=== PATIENT | female | born 1940 | race Caucasian/White ===

== ENCOUNTER → 2016-05-04 | Outpatient (CLI) | payer OTHER ==
[~2016-05-04] MED LIST: CALCTAB5 PO
--- NOTE | 2016-05-04 16:42 | MAMMOGRAPHY REPORT ---
BILATERAL DIGITAL SCREENING MAMMOGRAM TOMOSYNTHESIS WITH CAD: 05/04/2016 CLINICAL HISTORY: Routine screening. Patient has no complaints. TECHNIQUE: Breast tomosynthesis in addition to standard 2D mammography was performed. Current study was also evaluated with a Computer Aided Detection (CAD) system. COMPARISON: Comparison is made to exams dated: 04/29/2015 mammogram, 04/17/2013 mammogram, 04/14/2012 mammogram, 03/23/2011 mammogram, and 03/20/2010 mammogram - [facility]. BREAST COMPOSITION: The tissue of both breasts is heterogeneously dense, which may obscure small ma sses. FINDINGS: The parenchymal pattern is similar to prior exams. There are benign calcifications bilate rally. No suspicious mass, architectural distortion or cluster of microcalcifications is seen. IMPRESSION: ACR BI-RADS CATEGORY 1: NEGATIVE There is no mammographic evidence of malignancy. A 1 year screening mammogram is recommended. The p atient will receive written notification of the results. Approximately 10% of breast cancers are not detected with mammography. A negative mammographic repor t should not delay biopsy if a clinically suggestive mass is present. Davina Hutchins M.D. ay/:05/04/2016 16:33:20 Waistband Setter: Eve Obrien, [facility] letter sent: Normal 1/2 BI-RADS Code: ACR BI-RADS Category 1: Negative
== END | disposition home or self-care (01) ==
LOC: C.MAMM 14:42
PROVIDERS: ATTEND Obstetrics & Gynecology
DX: Z12.31 Encounter for screening mammogram for malignant neoplasm of breast (principal)

== ENCOUNTER → 2016-07-27 | Outpatient (CLI) | payer OTHER | END | disposition home or self-care (01) | LOC: C.RDSM 13:19 | PROVIDERS: ATTEND Physical Medicine & Rehabilitation Sports Medicine | DX: M17.12 Unilateral primary osteoarthritis, left knee (principal) ==

== ENCOUNTER → 2017-03-11 | Outpatient (CLI) | payer OTHER | END | disposition home or self-care (01) | LOC: C.LABSPEC 16:47 | PROVIDERS: ATTEND Podiatrist Primary Podiatric Medicine | DX: B35.1 Tinea unguium (principal) ==

== ENCOUNTER → 2017-04-29 | Outpatient (CLI) | payer OTHER ==
--- NOTE | 2017-04-29 10:26 | DIAGNOSTIC IMAGING REPORT ---
CHEST 2 VIEWS ROUTINE CLINICAL HISTORY: R05 [id number] dyspnea COMPARISON STUDY: 01/10/2013 FINDINGS: The bones soft tissues and hemidiaphragms are normal. The cardiomediastinal silhouette is normal. The lungs are clear. The pulmonary vasculature is normal. IMPRESSION: Negative chest. The above report was generated using voice recognition software. It may contain grammatical, syntax or spelling errors. Electronically signed by: Fito Mendez M.D. 04/29/2017 10:25 AM Dictated Date/Time: 04/29/2017 10:25 AM
[2017-04-29 12:24] LABS: INFLUENZA B ANTIGEN Neg for Influ B (NEG)
== END | disposition home or self-care (01) ==
LOC: C.LAB1850 10:12
PROVIDERS: ATTEND Internal Medicine Pulmonary Disease
DX: R05 Cough (principal); R50.9 Fever, unspecified

== ENCOUNTER → 2017-05-11 | Outpatient (CLI) | payer OTHER ==
--- NOTE | 2017-05-12 14:01 | MAMMOGRAPHY REPORT ---
BILATERAL DIGITAL SCREENING MAMMOGRAM TOMOSYNTHESIS WITH CAD: 05/11/2017 CLINICAL HISTORY: Routine screening. Patient has no complaints. TECHNIQUE: Breast tomosynthesis in addition to standard 2D mammography was performed. Current study was also evaluated with a Computer Aided Detection (CAD) system. COMPARISON: Comparison is made to exams dated: 05/04/2016 mammogram, 04/29/2015 mammogram, 04/23/2014 m ammogram, 04/17/2013 mammogram, 04/14/2012 mammogram, and 03/23/2011 mammogram - [facility]. BREAST COMPOSITION: The tissue of both breasts is heterogeneously dense, which may obscure small mas ses. FINDINGS: The parenchymal pattern is unchanged. No developing mass, architectural distortion or clus ter of suspicious microcalcifications is seen in either breast. IMPRESSION: ACR BI-RADS CATEGORY 2: BENIGN There is no mammographic evidence of malignancy. A 1 year screening mammogram is recommended. The pa tient will receive written notification of the results. Approximately 10% of breast cancers are not detected with mammography. A negative mammographic report should not delay biopsy if a clinically suggestive mass is present. Davina Hutchins M.D. ay/:05/11/2017 16:38:05 Wrapping Machine Operator: Ann Marie SMALLS(Olivier)(Leanne)(BD), [facility] letter sent: Normal 1/2 BI-RADS Code: ACR BI-RADS Category 2: Benign
== END | disposition home or self-care (01) ==
LOC: C.MAMM 14:20
PROVIDERS: ATTEND Obstetrics & Gynecology
DX: Z12.31 Encounter for screening mammogram for malignant neoplasm of breast (principal)

== ENCOUNTER → 2017-07-15 | Outpatient (CLI) | payer OTHER | END | disposition home or self-care (01) | LOC: C.PAPS 14:30 | PROVIDERS: ATTEND Obstetrics & Gynecology | DX: Z12.4 Encounter for screening for malignant neoplasm of cervix (principal) ==

== ENCOUNTER 2022-05-27 05:17 | Observation (INO) ==
--- NOTE | 2022-04-30 15:58 | PAT Medication Instructions ---
Medication Instructions Date of Service April 30, 2022 Home Medications Medication Instructions Recorded tcoiptcrne-odlxzgwprihyr-rnmhyunl 1 cap PO TID PRN pain #30 caps 09/11/20 50 mg-300 mg-40 mg capsule (Fioricet) grepltehxz-hqhxmwzsadcql-xlzunrgw 50 mg-300 mg-40 mg capsule (Fioricet) 1 cap PO TID PRN Relief Factor 1 tab PO DIRECTED PRN acetaminophen 325 mg tablet (Tylenol) 325 mg PO QID PRN ASK your surgeon for instructions ldkwshocwb-kthtcptvzwgsk-eveierud 50 mg-300 mg-40 mg capsule (Fioricet) 1 cap PO TID PRN STOP taking 2 weeks before surgery (or as soon as possible if surgery is within 2 weeks) Relief Factor 1 tab PO DIRECTED PRN Take morning of surgery With a small sip of water, OTHERWISE NOTHING TO EAT OR DRINK AFTER MIDNIGHT: acetaminophen 325 mg tablet (Tylenol) 325 mg PO QID PRN(if needed) Take evening before surgery acetaminophen 325 mg tablet (Tylenol) 325 mg PO QID PRN(if needed) Other Notes If you have any questions please call us at [phone] or [phone] or [phone] or [phone]
--- NOTE | 2022-05-04 10:32 | Anesthesiology Consultation ---
Date of Service May 04, 2022 Assessment & Plan (1) Encounter for pre-operative examination: - Outpatient joint assessment: Patient is currently scheduled for inpatient pathway. If re-evaluated pending system levels during current pandemic/surgeon requests outpatient pathway, patient is not acceptable candidate for outpatient joint program from anesthesia standpoint. Chart Review Chart Review: Acceptable Risk for Surgery and Patient seen in Pre Admission Testing Teaching & Discussion Pre-Anesthesia Teaching/Discussion Notes: Instructed NPO after midnight before surgery, except medications with 15 cc of water. Medication instructions provided according to the PAT guidelines. History Surgery Operation Date: 05/27/22 07:00 Proposed Procedures p Right Total Knee Arthroplasty - Jac Victoria MD Height/Weight Height: 5 ft 6.5 in Weight: 60.7 kg Allergies Allergy/AdvReac Type Severity Reaction Status Date / Time No Known Allergies Allergy Unknown Verified 04/30/22 11:15 Medications Home Medications Medication Instructions Recorded Confirmed Last Taken ilosqtxfis-nwgslkrblnkrl-tyydtygs 1 cap PO TID PRN pain #30 caps 09/11/20 04/30/22 Unknown 50 mg-300 mg-40 mg capsule (Fioricet) Relief Factor 1 tab PO DIRECTED PRN Pain 04/30/22 04/30/22 Unknown acetaminophen 325 mg tablet 325 mg PO QID PRN Pain 04/30/22 04/30/22 Unknown (Tylenol) Past Medical History Medical History Hodgkin's disease no recent flare up Rheumatoid arthritis Patient denies h/o stroke, seizures, heart attack, heart failure, DM, HTN, blood clots or blood transfusions. Exercise / Class Metabolic Activity II 4-5 Yardwork/Stairs/Walk up hill (denies chest discomfort or shortness of breath with 1 FOS) Past Family History Family History Other Family history non-contributory Denies family history of Ovarian cancer Breast cancer Colorectal cancer Past Surgical History Surgical History (Updated 05/04/22 @ 10:57 by Ana Fink PA-C) History of cataract surgery History of removal of Port-a-Cath Hx of basal cell carcinoma excision back Past Anesthesia History No Hx of Anesthesia Complications and No Family Hx of Anesthesia Complications History of PONV No Hx of PONV and No Hx of Motion Sickness Social History Smoking Status: Never smoker Do You Dip or Chew Tobacco: No Hx Alcohol Use: Yes Alcohol type: wine alcohol intake frequency: 0-2 drinks per day Hx Substance Use: No substance use type: does not use Review of Systems Patient denies chest pain, shortness of breath, dyspnea on exertion, snoring, witnessed apneas, reflux, fever, chills, cough, wheezing, or palpitations. Physical Exam Vital Signs Vitals BP 134/87 P 86 TEMP 98.3 SP02 98% on RA RESP 18 Physical Full cervical extension range of motion without pain TMD 3.5 finger breadths Mallampati Score 3 Dentition: several crowns and permanent bridge right upper back; denies chipped or loose teeth, caps or implants Lungs: normal respiratory effort. Clear throughout to auscultation, no adventitious breath sounds Cardiac: regular rate and rhythm, no murmurs noted Carotid arteries: negative bruit bilat Lab Results Anesthesia Preop Results Results Anesthesia Widget: WBC 4.55 K/ul (4.8-10.8) L 05/04/22 Hgb 13.4 g/dl (12.0-16.0) 05/04/22 Hct 39.3 % (37.0-47.0) 05/04/22 Plt 196 K/uL (130-400) 05/04/22 Na 138 mmol/L (136-145) 05/04/22 K 3.9 mmol/L (3.5-5.1) 05/04/22 Cl 104 mmol/L (98-107) 05/04/22 CO2 27 mmol/L (21-32) 05/04/22 BUN 18 mg/dl (6-23) 05/04/22 Creat 0.52 mg/dl (0.6-1.2) L 05/04/22 Glucose Level 83 mg/dl (70-99(Fasting)) 05/04/22 PT 10.3 Seconds (9.0-12.0) 05/04/22 PTT 27.0 Seconds (21.0-31.0) 05/04/22 INR 1.0 (0.9-1.1) 05/04/22 Urine Color Yellow 05/04/22 Urine Appearance Clear (Clear) 05/04/22 Urine pH 6.5 (4.5-7.5) 05/04/22 Urine Specific [place] 1.014 (1.000-1.030) 05/04/22 Urine Protein Negative (Negative) 05/04/22 Urine Glucose (UA) Negative (Negative) 05/04/22 Urine Ketones Negative (Negative) 05/04/22 Urine Blood Negative (Negative) 05/04/22 Urine Nitrite Negative (Negative) 05/04/22 Urine Bilirubin Negative (Negative) 05/04/22 Urine Urobilinogen Negative (Negative) 05/04/22 Urine Leukocyte Esterase Negative (Negative) 05/04/22 Blood Type B Positive 05/04/22 Antibody Screen NEGATIVE 05/04/22 Testing Electrocardiogram Date: 05/04/22 NSR, rate 81 bpm Chest X-Ray Date: 05/04/22 Cardiomediastinal and hilar silhouettes are within normal limits. Mitral annular calcifications. No pneumothorax, pleural effusion, airspace consolidation or overt pulmonary edema. Degenerative changes of the shoulders and spine. IMPRESSION: No acute process. Cervical Spine Date: 05/04/22 x-ray 1. No evidence for cervical spine instability during flexion or extension. 2. Severe multilevel facet arthrosis and moderate degenerative disc disease within the cervical spine COVID-19 Risk Screen Screening Information COVID-19 Screen Date: 05/04/22 Exposure 21 Days Family/Household +COVID Last 21 Days: No Exposure 10 Days Any COVID Exposure Last 10 Days: No Symptoms Last 10 Days Experienced COVID Sx Last 10 Days: No + COVID 0-90 Days COVID + in Last 0-90 Days: No
--- NOTE | 2022-05-14 11:59 | History & Physical Report ---
Date of Service May 14, 2022 Assessment & Plan (1) Right knee DJD: Plan: Postoperative prescriptions for Percocet and Coumadin will be provided at discharge from the hospital. Anticipate discharge to home with home health services. Postoperative followup appointment has been made for 06/11/2022 at 10:45 a.m. for staple removal. PDMP was checked and there were no concerning findings. The patient is aware of the COVID-19 risk associated with surgery. She is currently asymptomatic of any COVID-19 symptoms. Prescription for a walker was provided. She will obtain a cane as well. She has already seen PAT for preop labs, EKG, and chest film. Call with any other concerns. History of Present Illness Chief Complaint: Right knee pain Primary Care Provider: Sukhdev Pearson MD This 81-year-old female presents for her preoperative history and physical. She is scheduled to undergo a right knee total knee arthroplasty on 05/27/2022. The patient has a longstanding history of right knee pain. Symptoms have been ongoing for over 6 years. She initially managed well with viscosupplementation injections and activity modification. At this point, she is no longer getting around well. She has pain with daily activity. She has tried steroid injections without improvement. No catching or locking. No buckling. Pain is worse with weightbearing. It is affecting her ADLs. She elects to proceed with surgical intervention in hopes of improving her function. Preoperative imaging has been obtained. Allergies Allergy/AdvReac Type Severity Reaction Status Date / Time No Known Allergies Allergy Unknown Verified 04/30/22 11:15 Home Medications Medication Instructions Recorded Confirmed Type cpoicgkvzq-nzjlwktvfvzme-xwlthqds 1 cap PO TID PRN pain #30 caps 09/11/20 0 04/30/22 Rx 50 mg-300 mg-40 mg capsule (Fioricet) Relief Factor 1 tab PO DIRECTED PRN Pain 04/30/22 04/30/22 History acetaminophen 325 mg tablet 325 mg PO QID PRN Pain 04/30/22 04/30/22 History (Tylenol) Past Med/Surg History Medical History Hodgkin's disease no recent flare up Rheumatoid arthritis Surgical History History of cataract surgery History of removal of Port-a-Cath Hx of basal cell carcinoma excision back Family History Other Family history non-contributory Denies family history of Ovarian cancer Breast cancer Colorectal cancer Social History Smoking Status: Never smoker Second Hand Exposure: No; Hx Alcohol Use: Yes Alcohol type: wine Hx Substance Use: No Preferred Language: Greek Communication Ability: Effective Ghost Writer Required: No Beliefs That Will Affect Care: None Current Living Situation: Spouse Feels Safe at Home: Yes Assistive Devices: Glasses Review of Systems Review of Systems: All systems reviewed & are unremarkable except as noted in HPI & below Physical Exam Physical Exam: VITAL SIGNS: Height 168 cm, weight 61.4 kilograms, BMI 21.8. Temperature 36.2, BP 142/90, pulse 90, O2 sat 100% on room air. GENERAL: Well-developed, well-nourished elderly white female in no acute distress. Sitting in a chair. Alert and oriented. Thin individual. SKIN: Warm and dry with good turgor. No rashes or lesions. No ecchymosis or erythema. No intra-articular effusion in the right knee. No redness or warmth. HEENT: Normocephalic, atraumatic. Eyes: PERRLA, EOMI. Nares and oropharynx exam is deferred due to COVID precautions. HEART: RRR. No MGR. LUNGS: Clear to auscultation bilaterally. No crackles, rhonchi or wheezing. Good air movement. ABDOMEN: Bowel sounds present x4, soft and nontender. No organomegaly. No ma sses. MUSCULOSKELETAL: Right knee has no intra-articular effusion. There is focal pain with palpation over the medial joint line. Mild peripatellar discomfort as well. No lateral joint line discomfort with palpation in the right knee. There is full terminal extension. Flexion is greater than 100 degrees. Strength is 5/5 with fair quad tone. She is ambulating with a moderately antalgic gait. No defect in the patellar tendon or quadriceps tendon. Peripheral pulses are 2+. NEUROLOGIC: Gross sensation is intact across both lower extremities by soft touch. Results & Data Results & Data ([facility]) Diagnostic Findings Radiographic imaging previously obtained shows end-stage DJD of the right knee. Periarticular osteophytes, subchondral sclerosis, and joint space narrowing are all present. Code Status & VTE Plan VTE Prophylaxis Plan VTE Prophylaxis will be ordered: Yes
[2022-05-27] MEDS ORDERED: ceFAZolin 2000MG 2,000 MG/15 ML SYR IV SCH (06:00)
[2022-05-27] MEDS ORDERED: LR 500ML BOLUS, THEN 15ML/HR IV SCH (06:00)
[2022-05-27] MEDS ORDERED: TRANEXAMIC ACID 1,000 MG **IV Pre-op IV SCH (06:00)
[2022-05-27] MEDS ORDERED: ROPIVACAINE 0.5% HCL/PF 150 MG, BUPIVACAINE 0.75% MPF 20 ML, EPINEPHrine 0.15 MG, Ketor... INFIL SCH (06:00)
[2022-05-27] MEDS ORDERED: LR 60ML/HR IV SCH (06:00)
[2022-05-27] MEDS ORDERED: ROPIVACAINE 0.5% 5 MG/ML 30 ML VIAL ONE (06:16)
--- NOTE | 2022-05-27 06:32 | History & Physical Bridge Note ---
Date of Service May 27, 2022 History & Physical Bridge Note I have examined the patient, reviewed the History & Physical and in the interval since the performance of the History & Physical I have noted the following changes of clinical significance: consent reviewed/site verified . no changes noted
[2022-05-27] MEDS ORDERED: ORTHO JOINT ANESTHETIC ONE (06:37)
[2022-05-27] MEDS ORDERED: fentaNYL citrate 100 MCG/2 ML VIAL ONE (06:39)
[2022-05-27] MEDS ORDERED: MIDAZOLAM HCL 1 MG/ML 2ML VIAL ONE (06:39)
[2022-05-27] MEDS ORDERED: ePHEDrine sulfate 50 MG/ML AMP IV PRN (07:02)
[2022-05-27] MEDS ORDERED: KETOROLAC 30 MG/ML VIAL IV PRN (07:02)
[2022-05-27] MEDS ORDERED: ONDANSETRON INJ 2 MG/ML 2 ML VIAL IV PRN ×2 (07:02→09:44)
[2022-05-27] MEDS ORDERED: ATROPINE SULFATE 0.1 MG/ML 10ML SYR IV PRN (07:02)
[2022-05-27] MEDS ORDERED: HYDROmorphone INJ 1 MG/ML SYRINGE IV PRN (07:02)
[2022-05-27] MEDS ORDERED: PROPOFOL IV EMULSION 10 MG/ML 20 ML VIAL IV ONE (07:42)
[2022-05-27] MEDS ORDERED: ePHEDrine sulfate 50 MG/ML SYR ONE (07:42)
--- NOTE | 2022-05-27 08:28 | Post Operative Brief Note ---
Immediate Post Op Note v1 Date of Surgery May 27, 2022 Pre & Post Diagnosis Operation Date: 05/27/22 07:00 <No data on this case meets the specified criteria> I identified the patient and participated in the time-out.: Yes Procedure Operation Date: 05/27/22 07:00 <No data on this case meets the specified criteria> Surgeon Jac Victoria MD Chainsaw Mechanic Irving/Ezequiel Estimated Blood Loss 25 Findings Consistent with Post-Op Diagnosis
--- NOTE | 2022-05-27 08:39 | Operative Report ---
Post Operative Report Pre & Post Diagnosis Operation Date: 05/27/22 07:00 Pre-Op Diagnosis: Right Knee Degenerative Joint Disease Post-Op Diagnosis: Right Knee Degenerative Joint Disease I identified the patient and participated in the time-out.: Yes Procedure Operation Date: 05/27/22 07:00 Actual Procedures p Right Total Knee Arthroplasty(Right) - Jac Victoria MD Surgeon BLAISE Victoria MD Special Events Manager Irving/Ezequiel HOLMAN Estimated Blood Loss 25 Findings Consistent with Post-Op Diagnosis see operative report Specimens see operative report Drains none Complications none Disposition Accompanied Patient To Recovery: Yes Indications This 81 year old female presented to the office with complaints of persisting right knee pain. She had tried conservative care measures including activity modification, oral medications, and injection therapy, without improvement. She elected to proceed with surgical invention after being educated about potential risks and outcomes. Preoperative imaging was obtained. Description of Procedure The patient was administered a spinal anesthetic and then taken to the operating room where she was given sedation. She was prepped and draped in the usual sterile fashion. Please see Dr. Victoria's operative report for specifics of the procedure. I was present for the entire case from initial patient positioning through final wound closure. Assistance was provided in tissue retraction, hemostasis, trial implant placement, final implant placement, and final wound closure. Patient was taken to the recovery room in satisfactory condition. I attest to the content of the Intraoperative Record and any orders documented therein. Any exceptions are noted below.
--- NOTE | 2022-05-27 09:03 | Operative Report (OR) ---
DATE OF PROCEDURE: 05/27/2022 SURGEON: Jac Victoria MD. SUPERVISOR ELECTRONICS INSPECTION: Irving. SECOND SUPERVISOR ELECTRONICS INSPECTION: Juan Francisco Nieves PA-C. PREOPERATIVE DIAGNOSIS: Osteoarthritis with inflammatory disease, right knee. POSTOPERATIVE DIAGNOSIS: Osteoarthritis with inflammatory disease, right knee. OPERATION PERFORMED: Right total knee replacement. PERIOPERATIVE SITUATION: Medically cleared female with intractable knee pain, has end-stage disease by x-ray and physical exam has been treated for decades nonoperatively at this point in time, her tyler n is so severe she wants to proceed with surgical treatment. She has a combination of inflammatory a rthropathy and degenerative arthropathy. This is in the right knee. SUMMARY OF IMPLANTS: A size right 3 femur, posterior cruciate substituting size 3 mobile bearing tra y, size 3 x 10 insert posterior cruciate substituting and size 41 patella, 2 bags of [place]os G cement . ESTIMATED BLOOD LOSS: 25 mL CRYSTALLOID: Per Anesthesia. DVT prophylaxis with Coumadin. DESCRIPTION OF PROCEDURE: The patient was appropriately identified, site verified, consent verified. Antibiotics were confirmed as being given. The right lower extremity was prepped and draped in usu al routine fashion. Tourniquet was inflated to 275 mmHg after exsanguination of the limb with a rubb er Esmarch bandage. Total tourniquet time was 47 minutes. Midline exposure was utilized. Parapatel lar arthrotomy performed. Synovectomy completed. Osteophytes resected. Distal femur entered. Cruc iates resected. Tibia was subluxated. Menisci resected. There was grade 4 disease in the entire la teral compartment and then the trochlea and grade 3+ disease medially. Once everything was cleaned o ut, the femur was then resected 12 mm, the tibia 4 mm, and the extension gap was excellent. The box cut was then made and the size 3 fit well. It should be mentioned that when measuring the fe mur it was between a 4 and a 3, was measured 4, cut 3. There was no undue notching. After the distal cut and chamfer cuts were made, the flexion gap was checked, it was excellent. The box cut was then made. The size 3 fit well. The tibia was then subluxated and then size 3 template baseplate placed and then appropriate reaming carried out. The 10 mm spacer fit well. The knee was stable through full range, including mid range flexion. The patella tracked well. The patella was r esected leaving 15 mm. It was a very thin patella, 41 dome fit well. Seating holes made and then th e trial tracked well. Orthomix was then injected all about the knee. Trial implants were removed. P osterior capsule injected. Knee irrigated with Betadine and Pulsavac, and then the permanent cemente d in position - tibia, femur, and patella in that order. At 12 minutes, the tourniquet was deflated. There was minor bleeding. This was controlled easily with the electrocautery in several small site s. After 14 minutes, the knee was flexed, no major cement removal was required. The wound was then irrigated with Betadine Pulsavac. The trial spacer removed and then the permanent spacer seated. Th e knee reduced and closed at 40 degrees of flexion with #2 Vicryl, 2-0 Vicryl, and stainless steel cl ips. Appropriate dressing applied. The patient was transferred to the recovery room in satisfactory condition, having tolerated the procedure well. Job ID: [id number]
--- NOTE | 2022-05-27 09:12 | Progress Notes ---
SUBJECTIVE: Postop check status post right total knee replacement. The patient is resting comfortab ly in bed. Denies chest pain, shortness of breath, fever, chills, nausea, vomiting or headache. VITAL SIGNS: Stable. She is afebrile. Wound dressing clean, dry and intact. Neurologic exam limited by spinal. X-rays, AP and lateral knee revealed excellent positioning of sue reed, status post right total knee replacement. ASSESSMENT: Overall doing well. Continue care pathway. Mobilize when legs are recovered from spina l anesthesia. DVT prophylaxis with Coumadin. Job ID: [id number]
--- NOTE | 2022-05-27 09:20 | Discharge Summary (DS) ---
DATE OF ADMISSION: 05/27/2022. DATE OF POTENTIAL DISCHARGE: 05/28/2022. CHIEF COMPLAINT: Right knee pain. HISTORY OF PRESENT ILLNESS: The patient underwent uneventful right total knee replacement. At this point in time, she is doing well. She has no major issues. Postop x-rays look excellent. ALLERGIES: None. HOME MEDICATIONS: Include acetaminophen p.r.n., relief after p.r.n. butalbital, acetaminophen, caffe ine; Fioricet p.r.n. PAST MEDICAL HISTORY: Remarkable for rheumatoid disease, Hodgkin's disease. PAST SURGICAL HISTORY: Remarkable for cataract, insertion and removal of Port-A-Cath, history of bas al cell carcinoma on her back. FAMILY HISTORY: Noncontributory. Denies ovarian, breast cancer or colorectal cancer. SOCIAL HISTORY: Reveals she does not smoke. No secondhand exposure. Social alcohol only. She is m arried and lives with her spouse, feels safe at home. Wears glasses. REVIEW OF SYSTEMS: Reveals no chest pain, shortness of breath, fever, chills, nausea, vomiting or he adache. ASSESSMENT: Status post right total knee replacement, doing well today. Plan is to continue with ca re pathway. Discharge home tomorrow if she does well overnight. Job ID: [id number]
[2022-05-27] MEDS ORDERED: NALOXONE HCL 0.4 MG/1 ML VIAL/CARP IV PRN (09:44)
[2022-05-27] MEDS ORDERED: oxyCODONE HCL IR 5 MG TAB (IMMEDIATE RELEASE) PO PRN (09:44)
[2022-05-27] MEDS ORDERED: bisacodyL 10 MG SUPP PR PRN (09:44)
[2022-05-27] MEDS ORDERED: MAGNESIUM HYDROXIDE SUSP 30 ML UDC PO PRN (09:44)
[2022-05-27] MEDS ORDERED: METOCLOPRAMIDE HCL INJ 5 MG/ML 2 ML VIAL IV PRN (09:44)
[2022-05-27] MEDS ORDERED: diphenhydrAMINE 50 MG/ML VIAL IV PRN (09:44)
[2022-05-27] MEDS ORDERED: SODIUM CHLORIDE 0.9% 1000ML 1,000 ML IV SCH (09:44)
[2022-05-27] MEDS ORDERED: HYDROmorphone INJ 0.5 MG/0.5 ML SYR IV PRN (09:44)
[2022-05-27] MEDS ORDERED: ALUMINUM/MAGNESIUM SUSP 30 ML UDC PO PRN (09:44)
[2022-05-27] MEDS ORDERED: BUTALBITAL/ASPIRIN/CAFFEINE 1 TAB TAB PO PRN (09:50)
--- NOTE | 2022-05-27 10:08 | Anesthesiology Progress Note ---
Date of Service May 27, 2022 Anesthesia Post Procedure Vital Signs Vital Signs: Temp Pulse Pulse Resp BP Pulse Ox O2 Del Method 05/27/22 09:40 36.4 C L 76 18 133/86 97 Room Air 05/27/22 09:15 36.4 C L 72 14 124/72 97 Room Air 05/27/22 09:05 73 13 118/69 97 Room Air 05/27/22 08:55 81 19 123/73 100 Oxymask 05/27/22 08:45 76 17 117/68 100 Oxymask 05/27/22 08:37 36.3 C L 83 16 114/58 L 98 Oxymask 05/27/22 05:53 36.9 C 85 20 159/91 H 99 Room Air O2 Flow Rate 05/27/22 09:40 05/27/22 09:15 05/27/22 09:05 05/27/22 08:55 8 05/27/22 08:45 8 05/27/22 08:37 8 05/27/22 05:53 Transfer of Care Handoff Completed per policy Notes Mental Status: alert / awake / arousable Patient Amnestic to Procedure: Yes Nausea / Vomiting: adequately controlled Pain: adequately controlled Airway Patency, RR, SpO2: stable & adequate BP & HR: stable & adequate Hydration State: stable & adequate Neuraxial Anesthesia: was administered and sensory block is resolving Anesthetic Complications: no major complications apparent
[2022-05-27] MEDS: MULTIVITAMIN TAB PO SCH (10:38)
[2022-05-27] MEDS: DOCUSATE SODIUM 100 MG CAP PO SCH ×2 (10:38→21:22)
--- NOTE | 2022-05-27 11:21 | XRay Report ---
RIGHT KNEE 2 VIEWS History: Right total knee arthroplasty. Degenerative arthritis. Postop. FINDINGS: The patient is status post a right total knee arthroplasty. The hardware is intact. No frac ture or dislocation. Skin khurram are in place. IMPRESSION: Right total knee arthroplasty. No evidence for hardware complication. ACT 112: Negative or not required by law. Electronically signed by: Elio Griffin M.D. 05/27/2022 11:20 AM
[2022-05-27] MEDS: KETOROLAC TROMETHAMINE 15 MG/ML VIAL IV SCH ×3 (11:43→23:32)
[2022-05-27] MEDS: ceFAZolin 2000MG 2,000 MG/15 ML SYR IV SCH ×2 (13:31→22:23)
[2022-05-27] MEDS: ACETAMINOPHEN 500 MG TAB PO SCH ×2 (13:31→22:23)
[2022-05-27] MEDS ORDERED: ORTHO WARFARIN NOMOGRAM SCH ×2 (14:00)
[2022-05-27] MEDS ORDERED: TRANEXAMIC ACID / 0.7% NACL 1,000 MG/100 ML BAG IV SCH (14:45)
[2022-05-27] MEDS ORDERED: WARFARIN SOD 5 MG TAB PO SCH (16:00)
[2022-05-27] MEDS: FERROUS GLUCONATE 324 MG TAB PO SCH (16:26)
[2022-05-27] MEDS: ASCORBIC ACID 500 MG TAB PO SCH (16:27)
[2022-05-27] MEDS ORDERED: SENNA 8.6 MG TAB PO SCH (21:00)
[2022-05-28] MEDS: ACETAMINOPHEN 500 MG TAB PO SCH (05:23)
[2022-05-28] MEDS: KETOROLAC TROMETHAMINE 15 MG/ML VIAL IV SCH (05:23)
--- NOTE | 2022-05-28 06:44 | Progress Notes ---
SUBJECTIVE: Postop check postoperative day #1 status post right total knee replacement. The patient is awake and alert. Denies any problems. She is taking appropriate medication. She farah s not feel like her pain has escalated out of control. She denies any chest pain, shortness of breath, fever, chills, nausea, vomiting or headache. OBJECTIVE: Vital signs are stable. She is afebrile. Neurovascular check femoral sciatic nerve is normal. Can do a straight leg raise. Wound dressing clean, dry and intact. LABORATORY DATA: A.m. labs are pending. ASSESSMENT AND PLAN: Doing well. Discharged to home today after PT/OT. Coumadin dose per nomogram. Follow up in 2 weeks for staple removal. Encouraged to do exercises, particularly avoid placing an ything behind her knee, keep her knee as straight as possible when she is lying, and to get her knee to flex to 90 degrees CACHORRO. Job ID: [id number]
[2022-05-28 07:49] LABS: Hematocrit (blood only) 29.6 % (37.0-47.0); Mean Corpuscular Hemoglobin 31.4 pg (25.0-34.0); Mean Corpuscular Hgb Conc 33.8 g/dL (32.0-36.0); Mean Corpuscular Volume 93.1 fL (80.0-100.0); Mean Platelet Volume 9.6 fL (9.4-12.4); Platelet Count 157 K/uL (130-400); RDW Coefficient of Variation 11.7 % (11.5-14.5); RDW Standard Deviation 39.7 fL (36.4-46.3); Red Blood Count 3.18 M/uL (4.20-5.40); White Blood Count 7.33 K/ul (4.8-10.8)
[2022-05-28] MEDS ORDERED: dexAMETHasone 10 MG in SYRINGE 0 ML IV SCH (08:00)
[2022-05-28 08:06] LABS: BUN Creatinine Ratio 31.1 (10-20); Calcium 8.9 mg/dl (8.5-10.1); Creatinine Clr Calc Pharmacy 71.4 ml/min; Est GFR (African American) 99.9 ml/min; Est GFR (Non-African American) 86.2 ml/min; Potassium 3.7 mmol/L (3.5-5.1)
[2022-05-28] MEDS: ASCORBIC ACID 500 MG TAB PO SCH (08:20)
[2022-05-28] MEDS: DOCUSATE SODIUM 100 MG CAP PO SCH (08:20)
[2022-05-28] MEDS: FERROUS GLUCONATE 324 MG TAB PO SCH (08:20)
[2022-05-28] MEDS: MULTIVITAMIN TAB PO SCH (08:20)
[2022-05-28 08:34] LABS: INR 1.1 (0.9-1.1); Prothrombin Time 11.6 Seconds (9.0-12.0)
--- NOTE | 2022-05-28 09:23 | Orthopedic Progress Note ---
Date of Service May 28, 2022 Assessment & Plan (1) S/P total knee replacement using cement: Plan: Patient's dressings were changed today by me. FITO hose stocking was applied. Anticipate discharge to home today after PT/OT. She will use the knee immobilizer when out of bed today and tomorrow, and discontinue its use on Wednesday. Written discharge instructions were provided. Prescriptions for Percocet 5/325 mg and warfarin 2 mg were sent to her pharmacy. Follow-up in the office in 2 weeks as scheduled for staple removal. Call the office with any other concerns. Admission and Anticipated Discharge Date Admission Date: May 27, 2022 Subjective Patient seen in her room this morning. She has finished breakfast. She currently has no complaints. Denies any chest pain, shortness of breath, nausea, vomiting, abdominal pain, or significant leg pain. She has been out of bed and is currently sitting in her bedside chair. She feels ready for discharge to home. She has not participated in PT/OT yet. Review of Systems Review of Systems: Unchanged from yesterday. Physical Exam Physical Exam: General: Well-developed, well-nourished, elderly female, in no acute distress. Sitting in her bedside chair. Alert and oriented. Conversive. Skin: Warm and dry with good turgor. No rashes. Patient has a postsurgical dressing in place on her right leg. It is dry. Upon removal, she has a moderate amount of dried blood on her inner dressings. There is no active bleeding from her wound. [place] are in place. Wound edges are well corry roximated. Expected postoperative ecchymosis. No edema. Musculoskeletal: Patient has intact motor function of her right leg. She is able to set her quad and perform a straight leg raise. She has full terminal extension. Gentle flexion to around 45 degrees easily. Intact motor function of the ankle and toes. Neurologic: Gross sensation is intact across both lower extremities by soft touch. Peripheral pulses are 2+. Results & Data ([facility]) Vital Signs (Past 12 Hours) Vital Signs Temp Pulse Pulse Resp BP Pulse Ox O2 Del Method 05/28/22 07:37 36.4 C L 72 86 16 113/73 100 05/28/22 07:18 36.4 C L 86 16 113/73 100 Room Air 05/28/22 03:42 37.2 C 82 16 123/76 98 Room Air 05/27/22 23:40 36.7 C 89 16 104/66 97 Room Air Laboratory Results CBC obtained today shows a white count of 7.23. Hemoglobin 10.0. Hematocrit 29.6. Platelets 157,000. INR is 1.1. Sodium 137, potassium 3.7, chloride 105, CO2 26. BUN 19 and creatinine 0.61. Glucose this morning is 108.
[2022-05-28] MEDS ORDERED: WARFARIN SOD 5 MG TAB PO STA (13:39)
[2022-05-28] MEDS ORDERED: WARFARIN SOD 4 MG TAB PO STA (13:49)
== END 2022-05-28 14:34 | disposition home health service (06) ==
LOC: 3E 05:17 → ASU 05:17

== ENCOUNTER 2023-05-25 14:35 | Inpatient (IN) ==
--- NOTE | 2023-05-25 15:41 | History & Physical Report ---
Date of Service May 25, 2023 Assessment & Plan (1) Closed right hip fracture: Plan: Right hip fracture Right transcervical right femoral neck fracture with impaction and minimal displacement. History of right TKA - Baseline EKG nsr, qtc 441. Patient lost her balance while pivoting, no syncopal/presyncopal symptoms, no loss of consciousness, no head injury She has no history of cardiac, renal, or lung disease Does not take any blood thinners or antiplatelets Orthopedic surgery consulted. Anticipate operative repair with Dr. Victoria 05/26/2023. Discussed with provider, RCRI class I risk, no modifiable risk factors at time of admission. Recommend proceeding to surgery as scheduled. Multimodal pain control, Tylenol first-line, low-dose morphine second-line. No additional analgesics needed at time of admitting bedside Salgado in place. I&Os - NPO at 0000, Full liquids until midnight (2) Rheumatoid arthritis: Plan: Rheumatoid arthritis -Well-controlled, Tylenol as needed (3) Hodgkin's disease: Plan: Past Hx Hodgkins, no evidence of recurrent malignancy. WBC/Hb/platelet counts normal (4) Vitamin D insufficiency: Plan: With fracture as above. Vitamin D level ordered on admission (5) S/P total knee replacement using cement: Plan: Noted Plan SCDs Full liquids until midnight, then n.p.o. at midnight Medical/surgical Full code History of Present Illness Primary Care Provider: Sukhdev Pearson MD Skyla is a 82-year-old female [facility] patient who presents Mechanical fall on Wednesday. Scheduled with Dr. Baptiste. Skyla is seen at the bedside. She reports that she was pivoting when she lost her balance and fell striking her hip. She did not have any lightheadedness, dizziness, syncope, or presyncope. She did not strike her head. She did not have any chest pain/chest pressure/palpitations. Reports the fall was purely from losing her balance, had not felt dizzy prior. She reports that she had pain in her right hip but was able to bear some weight and was seen for follow-u p, hip was found to be broken as referred to the ER. At time of bedside assessment she feels the pain is not present and tolerable as long as she does not move. She is a little chilly, subsequently improved with additional blankets brought by staff. No other questions or concerns at time of bedside assessment. She reports that she has a history of rheumatoid arthritis, takes Tylenol as needed. Warfarin was on medication list, this was temporary prophylactic dosing after her right knee replacement. She does not currently take any blood thinners or antiplatelet agents. She denies a history of kidney, renal, and heart disease. No history of diabetes or insulin use. Medical History: Reviewed Medications: Reviewed Surgical History: Reviewed Family history: Reviewed Allergies: Reviewed Social History: Denies tobacco/alcohol/recreational substance use Code Status: Full Code Allergies Allergy/AdvReac Type Severity Reaction Status Date / Time No Known Allergies Allergy Unknown Verified 05/25/23 15:38 Home Medications Medication Instructions Recorded Confirmed Type Relief Factor 4 tab PO AMPM 05/25/23 05/25/23 History acetaminophen 500 mg tablet 1,000 mg PO Q6H PRN Pain 05/25/23 05/25/23 History (Tylenol Extra Strength) Past Med/Surg History Medical History Rheumatoid arthritis Hodgkin's disease no recent flare up Surgical History History of removal of Port-a-Cath Hx of basal cell carcinoma excision back History of cataract surgery Family History Other Family history non-contributory Denies family history of Ovarian cancer Breast cancer Colorectal cancer Social History Smoking Status: Never smoker Second Hand Exposure: No; Do You Dip or Chew Tobacco: No; Hx Alcohol Use: Yes Alcohol type: wine Hx Substance Use: No Preferred Language: Hungarian Communication Ability: Effective Promotions Director Required: No Beliefs That Will Affect Care: None Current Living Situation: Spouse Feels Safe at Home: Yes Assistive Devices: Walker Physical Exam Physical Exam: General: A&Ox3. NAD. Cooperative. HEENT: Atraumatic, normocephalic. Pupils equal and reactive to light. Vision and hearing grossly intact Pulm: CTAB A&P. -wheezes, -rales, -rhonchi. Symmetrical chest rise. No increased work of breathing. No respiratory distress. Cardiac: RRR, -mrg. Radial pulses intact and symmetrical. Abdominal: Nontender, nondistended, soft. BS present. Extremities: Right hip tender to palpation. Ankle dorsiflexion/plantarflexion 5/5 bilaterally without asymmetry. Sensation is soft touch intact in feet bilaterally without asymmetry. PT pulses intact bilaterally. No signs of neurovascular compromise. Results & Data Results & Data Vital Signs (Past 12 Hours) Vital Signs Temp Pulse Resp BP Pulse Ox 05/25/23 15:11 36.8 C 97 H 18 135/85 97 PG Care Time/CCT Total # of Minutes Spent Total Time Spent with Patient: Total time spent is greater than 50% in coordination of care (as documented) at patient's floor/unit and/or counseling patient: Coding Level of Care Code 69637 INT INP/OBS CARE 2/55MIN Diagnoses Closed right hip fracture S72.001A Rheumatoid arthritis M06.9 Hodgkin's disease C81.90 Vitamin D insufficiency E55.9 S/P total knee replacement using cement Z96.659
[2023-05-25 16:21] LABS: Basophils # (auto) 0.02 K/uL (0.00-0.20); Basophils % (auto) 0.3 %; Eosinophils # (auto) 0.06 K/uL (0.00-0.50); Eosinophils % (auto) 0.9 %; Hematocrit (blood only) 40.2 % (37.0-47.0); Hemoglobin 13.7 g/dl (12.0-16.0); Immature Granulocytes # (auto) 0.02 K/uL (0.01-0.20); Immature Granulocytes % (auto) 0.3 %; Lymphocytes # (auto) 0.57 K/uL (1.20-3.40); Lymphocytes % (auto) 8.7 %; Mean Corpuscular Hgb Conc 34.1 g/dL (32.0-36.0); Mean Platelet Volume 9.8 fL (9.4-12.4); Monocytes # (auto) 0.54 K/uL (0.11-0.59); Monocytes % (auto) 8.2 %; Neutrophils # (auto) 5.35 K/uL (1.40-6.50); Neutrophils % (auto) 81.6 %; Platelet Count 197 K/uL (130-400); RDW Coefficient of Variation 11.9 % (11.5-14.5); RDW Standard Deviation 39.8 fL (36.4-46.3); Red Blood Count 4.42 M/uL (4.20-5.40); White Blood Count 6.56 K/ul (4.8-10.8)
--- NOTE | 2023-05-25 16:22 | Orthopedic Consultation ---
Date of Consultation May 25, 2023 Assessment & Plan (1) Closed right hip fracture: Plan Prepare for surgery tomorrow. Likely do a hybrid total hip replacement with cemented femoral component and dual mobility acetabular component. Cussed in detail with the patient and her spouse who is a physician consent obtained in the office recognizing all complications including fracture infection instability blood clot emboli etc. Orthopedic Consult Patient is well-known to me for significant arthritic disease.Has had knee replacement. She was in her usual state of good health when she fell on Wednesday. She has been walking around with a walker for the last several days but her pain is starting to increase in the last 12 to 24 hours. She came into the office in a wheelchair. X-rays in the office reveal a displaced femoral neck fracture. Assessment femoral neck fracture displaced history of rheumatoid disease. At this point in time options to treat this would be best dealt with by doing a bipolar versus total hip replacement. Based on the rheumatoid disease would suggest total replacement being the most appropriate. Would do a cemented stem based on bone quality and history of inflammatory disease. Would strongly consider using dual mobility on the acetabular side based on her overall medical conditions. Please see PAs complete history and physical for this patient.
[2023-05-25 16:38] LABS: Albumin Globulin Ratio 1.6 (0.9-2); Albumin Level 4.6 gm/dl (3.4-5.0); BUN Creatinine Ratio 36.5 (10-20); Bilirubin,Total 0.5 mg/dl (0.2-1.0); Calcium 9.4 mg/dl (8.6-10.3); Creatinine Clr Calc Pharmacy 80.8 ml/min; Est GFR (African American) 104.6 ml/min; Est GFR (Non-African American) 90.2 ml/min; Globulin 2.8 gm/dl (2.5-4.0); Potassium 3.7 mmol/L (3.5-5.1); Total Protein 7.4 gm/dl (6.0-8.3)
[2023-05-25 16:48] LABS: INR 0.9 (0.9-1.1); Partial Thromboplastin Ratio 0.9; Partial Thromboplastin Time 25 Seconds (21-31); Prothrombin Time 10.3 Seconds (9.0-12.0)
[2023-05-25] MEDS ORDERED: ONDANSETRON INJ 2 MG/ML 2 ML VIAL IV PRN (16:54)
[2023-05-25] MEDS ORDERED: MoRPHine SULFATE 4 MG/ML 1 ML CARP\\VIAL IV PRN (16:54)
[2023-05-25] MEDS ORDERED: MoRPHine SULFATE 2 MG/ML CARP IV PRN (16:54)
[2023-05-25 17:10] LABS: Appearance Urine Clear (Clear); Bacteria Urine Automated Negative (Negative); Bilirubin Urine Negative (Negative); Blood Urine Negative (Negative); Color Urine Yellow; Glucose Urine UA Negative (Negative); Ketones Urine 2+ (Negative); Leukocyte Esterase Urine Negative (Negative); Nitrite Urine Negative (Negative); Protein Urine 1+ (Negative); RBC Urine Automated 0-4 /hpf (0-4); Specific Gravity Urine 1.028 (1.000-1.030); Urobilinogen Urine Negative (Negative); pH Urine 5.5 (4.5-7.5)
--- NOTE | 2023-05-25 17:50 | Electrocardiogram Report ---
Test Reason : Blood Pressure : / mmHG Vent. Rate : 087 BPM Atrial Rate : 087 BPM P-R Int : 136 ms QRS Dur : 072 ms QT Int : 380 ms P-R-T Axes : 052 070 065 degrees QTc Int : 457 ms Normal sinus rhythm Confirmed by Saurav Soto ([id number]) on 05/25/2023 5:49:48 PM Referred By: Jac Victoria Confirmed By:Lyle Soto
[2023-05-25] MEDS: LACTATED RINGER'S 1,000 ML IV SCH (18:03)
[2023-05-25] MEDS ORDERED: NALOXONE HCL 0.4 MG/1 ML VIAL/CARP IV PRN (19:08)
[2023-05-25] MEDS ORDERED: MAGNESIUM HYDROXIDE SUSP 30 ML UDC PO PRN (19:08)
[2023-05-25] MEDS ORDERED: bisacodyL 10 MG SUPP PR PRN (19:08)
[2023-05-25] MEDS: Patient's HEIGHT &/or WEIGHT Needed SCH (19:27)
--- NOTE | 2023-05-25 19:59 | Emergency Department Note ---
ED Provider Note History of Present Illness Chief Complaint: Referred by Doctor Stated Complaint: HIP SURGERY Time Seen by Provider: 05/25/23 15:10 Source: patient Mode of arrival: ambulatory Limitations: no limitations This patient is an 82-year-old female who presents to the emergency department for evaluation of a right hip fracture. Patient states that she had a mechanical fall 3 days ago and injured her right hip. Denies any other injuries. She was seen by orthopedics today and had an x-ray that showed a right hip fracture. She was told to come to the ER for admission and that they were scheduling her surgery for tomorrow. Home Medications Medication Instructions Recorded Confirmed Type Relief Factor 4 tab PO AMPM 05/25/23 05/25/23 History acetaminophen 500 mg tablet 1,000 mg PO Q6H PRN Pain 05/25/23 05/25/23 History (Tylenol Extra Strength) Allergies Allergy/AdvReac Type Severity Reaction Status Date / Time No Known Allergies Allergy Unknown Verified 05/25/23 15:38 Past Med/Surg History Medical History Rheumatoid arthritis Hodgkin's disease no recent flare up Surgical History History of removal of Port-a-Cath Hx of basal cell carcinoma excision back History of cataract surgery Family History Other Family history non-contributory Denies family history of Ovarian cancer Breast cancer Colorectal cancer Social History Smoking Status: Never smoker Second Hand Exposure: No; Do You Dip or Chew Tobacco: No; Hx Alcohol Use: Yes Alcohol type: wine Hx Substance Use: No Preferred Language: Greenlandic Communication Ability: Effective Ambulance Driver Required: No Beliefs That Will Affect Care: None Current Living Situation: Spouse Feels Safe at Home: Yes Assistive Devices: Walker Physical Exam Vital Signs Vital Signs - 24 hr 05/25/23 15:11 05/25/23 16:10 05/25/23 16:17 Temperature 36.8 C Temperature Source Skin Pulse Rate 97 H 93 H Pulse Rate [Apical] 89 Respiratory Rate 18 16 Respiratory Effort / Characteristics Non-Labored Respiratory Depth Normal Blood Pressure 135/85 Blood Pressure [Right Arm] 162/92 H Blood Pressure Mean 101 Blood Pressure Mean [Right Arm] 115 Pulse Oximetry 97 96 Oxygen Delivery Method Room Air Sepsis Recent Fever Within 48 Hours No Sepsis New/Unexplained Change in Mental Status No Sepsis Action Taken by Nursing No Action Required VITALS: Vitals are noted on the nurse's note and reviewed by myself. GENERAL: This is an 82-year-old female, in no acute distress, well-developed well-nourished. HEAD: Normocephalic atraumatic. HEART: Regular rate and rhythm without murmurs gallops or rubs. LUNGS: Clear to auscultation bilaterally without wheezes, rales or rhonchi. MUSCULOSKELETAL: No obvious deformity. No significant tenderness. Decreased range of motion of the right hip. NEURO: Patient was alert and oriented. Course Administered Medications Lactated Ringer's (Lr) 1,000 mls @ 80 mls/hr IV .[id number] PAIGE Stop: 06/24/23 17:04 Last Admin: 05/25/23 18:03 Dose: 80 mls/hr Documented By: MMG Discontinued Medications Miscellaneous (Patient's Height &/Or Weight Needed) 1 each N/A Q2H PAIGE Stop: 05/25/23 23:00 Last Admin: 05/25/23 19:27 Dose: 1 each Documented By: CPB Medical Decision Making Differential Diagnosis Fracture, dislocation, neurovascular compromise, compartment syndrome, soft tissue injury, as well as other pathologies. Laboratory Data Attestation: I reviewed the patient's lab results. 05/25/23 16:00 05/25/23 16:00 Lab Results 05/25/23 Range/Units 16:00 WBC 6.56 (4.8-10.8) K/ul RBC 4.42 (4.20-5.40) M/uL Hgb 13.7 (12.0-16.0) g/dl Hct 40.2 (37.0-47.0) % MCV 91.0 (80.0-100.0) fL MCH 31.0 (25.0-34.0) pg MCHC 34.1 (32.0-36.0) g/dL RDW Std Deviation 39.8 (36.4-46.3) fL RDW Coeff of Emiliana 11.9 (11.5-14.5) % Plt Count 197 (130-400) K/uL MPV 9.8 (9.4-12.4) fL Immature Gran % (Auto) 0.3 % Neut % (Auto) 81.6 % Lymph % (Auto) 8.7 % Anderson % (Auto) 8.2 % Eos % (Auto) 0.9 % Baso % (Auto) 0.3 % Neut # (Auto) 5.35 (1.40-6.50) K/uL Lymph # (Auto) 0.57 L (1.20-3.40) K/uL Anderson # (Auto) 0.54 (0.11-0.59) K/uL Eos # (Auto) 0.06 (0.00-0.50) K/uL Baso # (Auto) 0.02 (0.00-0.20) K/uL Immature Gran # (Auto) 0.02 (0.01-0.20) K/uL PT 10.3 (9.0-12.0) Seconds INR 0.9 (0.9-1.1) APTT 25 (21-31) Seconds PTT Ratio 0.9 Sodium 139 (136-145) mmol/L Potassium 3.7 (3.5-5.1) mmol/L Chloride 104 (98-107) mmol/L Carbon Dioxide 25 (21-32) mmol/L Anion Gap 10 (3-11) BUN 19 (6-23) mg/dl Creatinine 0.52 L (0.6-1.2) mg/dl Est Cr Clr Drug Dosing 80.8 ml/min Est GFR ( Amer) 104.6 ml/min Est GFR (Non-Af Amer) 90.2 ml/min BUN/Creatinine Ratio 36.5 H (10-20) Glucose 82 (70-99(Fasting)) mg/dl Calcium 9.4 (8.6-10.3) mg/dl Total Bilirubin 0.5 (0.2-1.0) mg/dl AST 15 (13-39) U/L ALT 11 (7-52) U/L Alkaline Phosphatase 82 (34-104) U/L Total Protein 7.4 (6.0-8.3) gm/dl Albumin 4.6 (3.4-5.0) gm/dl Globulin 2.8 (2.5-4.0) gm/dl Albumin/Globulin Ratio 1.6 (0.9-2) 25-OH Vitamin D Total 47.6 (30-100) ng/ml Imaging Data Attestation: I personally reviewed and interpreted this imaging study as follows: ECG Data Attestation: I personally reviewed and interpreted this ECG as follows: Indication: + other (preop) Rate (beats per minute): 87 Rhythm: + normal sinus ECG Intervals/blocks: + Normal QT ECG [place]: + Normal ECG ST segments: + Normal ST segments Change: no significant change MDM Narrative Continuous satellite project site monitor: Order was placed for continuous satellite project site monitor. Patient was placed on the satellite project site monitor. Patient was noted to be in normal sinus rhythm at an initial rate of 94 bpm. This patient is an 82-year-old female who presents to the emergency department for a right hip fracture which was diagnosed by orthopedics as an outpatient. Review of outpatient x-rays shows that the patient has an impacted right femoral neck fracture. Patient was seen by [facility] orthopedics who did consult in the ER and will take the patient to the OR tomorrow. Basic preoperative testing was ordered and case was discussed with the [facility] service, who agreed to evaluate the patient for further care. Impression Closed right hip fracture Discharge Plan Visit Data Chief Complaint: Referred by Doctor Stated Complaint: HIP SURGERY ED Provider: Koko Pritchard ED Midlevel Provider: Kati Zarate Discharge Problem: Closed right hip fracture Patient Disposition: Admitted As Inpatient Discharge Instructions Interventions: ED Discharge Assessment Last Done: 05/25/23 19:09 Discharge Problem: Closed right hip fracture Qualifiers: Encounter type: initial encounter Qualified Code(s): S72.001A - Fracture of unspecified part of neck of right femur, initial encounter for closed fracture
[2023-05-25] MEDS: ACETAMINOPHEN 325 MG TAB PO STA (21:08)
--- NOTE | 2023-05-25 21:52 | Emergency Department Note ---
ED Visit Note I have personally evaluated this patient examined her and reviewed the pertinent labs and data. I have discussed the case with Kati Zarate, the physician anesthetic assistant and agree with the plan. Please refer to the PA note. This patient was sent over from the orthopedics office after presenting with a left hip fracture. Happened over the weekend she has been walking with a walker. She has no significant pain on my exam she is neurologically neurovascular intact in the left leg. She has remained stable. They plan on operating her tomorrow the [facility] hospitalist team has been consulted as well. Chest x-iliana per my independent interpretationno acute infiltrate, failure, pneumothorax seen [employer] per my independent interpretationNormal sinus .
[2023-05-26] MEDS ORDERED: LACTATED RINGER'S 1,000 ML IV SCH
[2023-05-26] MEDS: ACETAMINOPHEN 1,000 MG/100 ML VIAL IV PRN (02:55)
--- NOTE | 2023-05-26 06:22 | History & Physical Bridge Note ---
Date of Service May 26, 2023 History & Physical Bridge Note I have examined the patient, reviewed the History & Physical and in the interval since the performance of the History & Physical I have noted the following changes of clinical significance:consent and site verified.c spine films ordered . no changes noted
--- NOTE | 2023-05-26 06:48 | XRay Report ---
XR chest 1V portable HISTORY: pre op for surgery tomorrow COMPARISON: Chest 05/04/2022. FINDINGS: The patient's chin partially obscures the left lung apex. Slightly rotated study. No pneumo thorax. No pleural effusions. There is a calcified granuloma within the left lung base. Otherwise, th e lungs are clear. The heart is normal in size. No acute fractures. No evidence for pulmonary edema. IMPRESSION: Slightly rotated study. Otherwise, no acute process within the chest. ACT 112: Negative or not required by law. Electronically signed by: Elio Griffin M.D. 05/26/2023 6:47 AM
--- NOTE | 2023-05-26 07:09 | XRay Report ---
XR cervical spine 2 or 3V CLINICAL HISTORY: prep for surgery hx of rheumatoid arthritis COMPARISON STUDY: Cervical spine radiograph 05/04/2022. FINDINGS: The cervical spine is visualized from C1 through C7. Alignment is intact. No fractures iden tified. The C2-C3 facets remain fused. Prevertebral soft tissues and the C1-C2 interval are intact. M oderate to severe disc space narrowing at C4-C5, C5-C6, and C6-C7. This remains unchanged. Moderate f acet degenerative changes throughout the cervical spine again noted. IMPRESSION: No fracture or subluxation within the cervical spine. ACT 112: Negative or not required by law. Electronically signed by: Elio Griffin M.D. 05/26/2023 7:08 AM
[2023-05-26] MEDS ORDERED: BUPIVACAINE 0.5 % 5 MG/1 ML PF 10ML VIAL ONE (07:31)
--- NOTE | 2023-05-26 08:03 | Hospitalist Progress Note ---
Date of Service May 26, 2023 Assessment & Plan (1) Closed right hip fracture: Plan: mechanical fall Right hip fracture Right transcervical right femoral neck fracture with impaction and minimal displacement. History of right TKA - Baseline EKG nsr, qtc 441. Patient lost her balance while pivoting, no syncopal/presyncopal symptoms, no loss of consciousness, no head injury She has no history of cardiac, renal, or lung disease Does not take any blood thinners or antiplatelets Orthopedic surgery consulted. Right total hip arthroplasty Dr. Victoria 05/26/2023 I was notified by the physicians catering assistant that this was a successful case without complication. Patient returned to the floor good condition Multimodal pain control, Tylenol first-line, low-dose morphine second-line. No additional analgesics needed at time of admitting bedside (2) Rheumatoid arthritis: Plan: Rheumatoid arthritis -Well-controlled, Tylenol as needed (3) Hodgkin's disease: Plan: Past Hx Hodgkins, no evidence of recurrent malignancy. WBC/Hb/platelet counts normal (4) Vitamin D insufficiency: Plan: With fracture as above. Vitamin D level ordered on admission found replete Plan SCDs Full code Physical therapy evaluation for consideration of rehabilitation will be required Admission and Anticipated Discharge Date Admission Date: May 25, 2023 Subjective I did visit the patient preoperatively. She was in good spirits. Slightly anxious for the upcoming surgery. She was in no distress and review of the vital signs and laboratories as well as preoperative testing I will continue to be favorable for this patient. Physical Exam Physical Exam: Awake alert appropriate. She has hand changes of rheumatoid arthritis with ulnar deviation Cardiac exam was regular without murmurs Lungs are clear anteriorly Right distal extremity had pulses and capillary refill intact Results & Data Results & Data Vital Signs (Past 12 Hours) Vital Signs Temp Pulse Pulse Resp BP Pulse Ox O2 Del Method 05/26/23 07:39 98.2 F 76 16 143/84 H 96 Room Air 05/26/23 05:12 98.1 F 62 16 123/79 96 Room Air 05/25/23 23:15 97.9 F 72 18 135/72 97 Room Air PG Care Time/CCT Total # of Minutes Spent Total Time Spent with Patient: Total time spent is greater than 50% in coordination of care (as documented) at patient's floor/unit and/or counseling patient: Coding Level of Care Code 82346 SUB INP/OBS CARE MIN Diagnoses Closed right hip fracture S72.001A Rheumatoid arthritis M06.9 Hodgkin's disease C81.90 Vitamin D insufficiency E55.9
[2023-05-26 08:08] LABS: Basophils # (auto) 0.01 K/uL (0.00-0.20); Basophils % (auto) 0.3 %; Eosinophils % (auto) 2.6 %; Hematocrit (blood only) 34.7 % (37.0-47.0); Hemoglobin 11.9 g/dl (12.0-16.0); Immature Granulocytes # (auto) 0.01 K/uL (0.01-0.20); Immature Granulocytes % (auto) 0.3 %; Lymphocytes # (auto) 0.62 K/uL (1.20-3.40); Mean Corpuscular Hemoglobin 30.8 pg (25.0-34.0); Mean Corpuscular Hgb Conc 34.3 g/dL (32.0-36.0); Mean Corpuscular Volume 89.9 fL (80.0-100.0); Mean Platelet Volume 9.4 fL (9.4-12.4); Monocytes # (auto) 0.42 K/uL (0.11-0.59); Monocytes % (auto) 10.8 %; Neutrophils # (auto) 2.72 K/uL (1.40-6.50); Platelet Count 170 K/uL (130-400); RDW Coefficient of Variation 11.9 % (11.5-14.5); RDW Standard Deviation 39.1 fL (36.4-46.3); Red Blood Count 3.86 M/uL (4.20-5.40); White Blood Count 3.88 K/ul (4.8-10.8)
[2023-05-26 08:28] LABS: BUN Creatinine Ratio 22.2 (10-20); Calcium 8.8 mg/dl (8.6-10.3); Creatinine Clr Calc Pharmacy 93.3 ml/min; Est GFR (African American) 109.7 ml/min; Est GFR (Non-African American) 94.6 ml/min; Potassium 3.5 mmol/L (3.5-5.1)
--- NOTE | 2023-05-26 09:11 | Orthopedic Progress Note ---
Date of Service May 26, 2023 Assessment & Plan (1) Closed right hip fracture: Plan: Plan for surgery today with Dr. Victoria Site is marked. Consent on chart. Currently NPO. All questions answered. Admission and Anticipated Discharge Date Admission Date: May 25, 2023 Subjective Patient resting in bed. No complaints of pain. Currently NPO. Physical Exam Musculoskeletal: Right Leg without edema. Site is marked. Skin is healthy. Distal pulses are 1+. Tolerates gentle ankle and foot range of motion. Results & Data Vital Signs (Past 12 Hours) Vital Signs Temp Pulse Pulse Resp BP Pulse Ox O2 Del Method 05/26/23 07:39 36.8 C 76 16 143/84 H 96 Room Air 05/26/23 05:12 36.7 C 62 16 123/79 96 Room Air 05/25/23 23:15 36.6 C 72 18 135/72 97 Room Air (1) Closed right hip fracture Encounter type: initial encounter Qualified Code(s): S72.001A - Fracture of unspecified part of neck of right femur, initial encounter for closed fracture
[2023-05-26] MEDS ORDERED: MoRPHine SULFATE 2 MG/ML CARP IV PRN (09:13)
--- OUTSIDE RECORDS SUMMARY | 2023-05-26 10:09 | External Medical Summary | Continuity of Care Document ---
Author Name Unknown Organization [facility] [id number] Address [address] [place] [phone] Care Team Providers Care Monomer Purification Operator Name Role Phone Sukhdev Pearson Primary Care Physician [phone] Encounter [facility] [id number] Date(s): 05/12/23 - 05/12/23 [facility] [address] [place] [id number] [place] [id number] Encounter Diagnosis Callus(Discharge Diagnosis) - 05/12/23 Tinea unguium(Discharge Diagnosis) - 05/12/23 Rheumatoid arthritis(Discharge Diagnosis) - 05/12/23 Discharge Disposition: Home or Self Care Attending Physician: ANDREA Fuentes Christina L Referring Physician: MD Pearson John J Allergies, Adverse Reactions, Alerts No Known Allergies Assessment and Plan Extracted from: Title:Follow Up Visit Author:ANDREA Fuentes, Nayana Goodwin Date:05/12/23 1.Callus Area debrided with #15 blade to tolerance, no bleeding or cellulitis noted verbal consent obtained for debridement Recommend moisturizing lotion to feet daily Recommend offloading pads over the area for pressure relief 2.Tinea unguium -Patient unable to provide self care to toenails due to RA - verbal consent obtained for debridement -Recommend toenail debridement -Patient had toenails of bilateral digits 1-5 debrided using nail nippers to tolerance, no bleeding noted -Patient instructed to use emery board to nails once per week -Patient had no ingrown toenails or infection noted -Patient is to follow up in 2-3 months for treatment if needed in the future 3.Rheumatoid arthritis Medications amoxicillin 500 mg oral capsule Start: 03/09/23 16:48:00 EST, See Instructions, Disp# 4 cap, Refills: 1, TAKE 4 CAPSULES BY MOUTH 1HOUR BEFORE DENTAL AND OTHER PROCEDURES DIRECTED, Pharmacy: [facility] Start Date: 03/09/23 Status: Ordered Mental Status 05/12/23 Barriers to Learning one year None evide nt Mandatory Health Literacy Documentation Yes Health Literacy Communication Barriers N ever Primary Language Belarusian Problem List Condition Confirmation Course Effective Dates Status H ealth Status Informant Hammer toe, acquired Confirmed Active Rheumatoid arthritis Confirmed Active Callus Confirmed Active Lymphoma Confirmed Active foot 1 Confirmed Active S/P total knee arthroplasty Confirmed Active Metatarsal bone fracture Confirmed Active Tinea unguium Confirmed Active Knee osteoarthritis Confirmed Active 1Left foot infection Diagnosis Diagnosis Type Effective Dates Health Status Clinical Service Informant Callus Discharge Diagnosis 05/12/23 Tinea unguium Discharge Diagnosis 05/12/23 Rheumatoid arthritis Discharge Diagnosis 05/12/23 Procedures Procedure Date Related Diagnosis Body Site Status Cataracts, both eyes Comp leted Vital Signs Most recent to oldest [Reference Range]: 1 Height 167.2 cm (05/12/23 11:19 AM) Patient Weight 60.4 kg (05/12/23 11:19 AM) Body Mass Index 21.61 kg/m2 (05/12/23 11:19 AM) Social History Social History Type Response Smoking Status Never smoked cigaret yamilet Sex Female Ortho Outpt Note * ANDREA Fuentes, Ade Goodwin: PERFORM Event Display: Ortho Outpt Note Authored Date: [id number] Chief Complaint callus and nail care Primary Care Provider MD Lili, Sukhdev Villalta Patient is a very pleasant 82-year-old female presenting today for care history of rheumatoid arthritisand significant arthritis of the feet secondary to RA. No acute concerns noted today. Review of Systems Rheumatoid arthritis Objective Vitals & Measurements WT:60.400kg(Dosing) WT:60.4kg Physical Exam Problem focused bilateral feet: Dorsalis pedis pulses palpable 1 out of 4, posterior tibial pulses palpable 1 out of 4. Capillaryrefill time is less than 3 seconds. Skin turgor is good to all digits of both feet. Varicosities are present on the dorsal foot. Skin is is warm and dry. No open wounds or lesions present on the feet. Moderate to severe hallux valgus deformity right more severely affected than the left. Second digit hammertoe present bilaterally left more painful than right Painfulsubmetatarsal 2-3 callus left foot recommend debridement Callus present right foot sub metatarsal 5, painfulrecommendeddebridement Callus present dorsal aspect left fifth toe recommend debridement Callus present submetatarsal 2 through 3 right foot recommendeddebridement Toenails of digits 1 through 5 bilateral feet with elongation, thickening greater than 1 mm and pain recommend debridement Assessment/Plan 1.Callus Area debrided with #15 blade to tolerance, no bleeding or cellulitis noted verbal consent obtained for debridement Recommend moisturizing lotion to feet daily Recommend offloading pads over the area for pressure relief 2.Tinea unguium -Patient unable to provide self care to toenails due to RA - verbal consent obtained for debridement -Recommend toenail debridement -Patient had toenails of bilateral digits 1-5 debrided using nail nippers to tolerance, no bleedingnoted -Patient instructed to use emery board to nails once per week -Patient had no ingrown toenails or infection noted -Patient is to follow up in 2-3 months for treatment if needed in the future 3.Rheumatoid arthritis Electronic Signature on File Electronically Reviewed/Signed by: Ade Fuentes DPM Author Signature Dt/Tm:05/12/2023 11:37 AM Division of Sports Medicine CLR Patient Care team information Care Team Personnel Name: ANDREA Fuentes Christina L Position: Physician - Podiatry Member Role: Lifetime Relationship Address: Address: [address] [place] [address] [place] Name: MD Pearson John J Position: Referring DIRECT Member Role: Primary Care Provider Address: Address: [facility] [address] [place] [address] [place] Care Team Related Persons Name: SISSY CARROLL Address: [facility] Address: home [address] [place] [phone] [place] Name: MYKE CARROLL Address: [address] [phone]
[2023-05-26] MEDS: LACTATED RINGER'S 1,000 ML IV SCH (10:22)
[2023-05-26] MEDS ORDERED: MIDAZOLAM HCL 1 MG/ML 2ML VIAL ONE (11:21)
[2023-05-26] MEDS ORDERED: KETAMINE HCL 10MG/ML SYR ONE (11:23)
[2023-05-26] MEDS: ceFAZolin 2000MG 2,000 MG/15 ML SYR IV SCH ×2 (11:35→20:47)
[2023-05-26] MEDS ORDERED: ePHEDrine sulfate 50 MG/ML AMP ONE (12:49)
[2023-05-26] MEDS ORDERED: LIDOCAINE 2% 2 ML VIAL/AMP(20MG/ML) INFIL ONE (12:49)
[2023-05-26] MEDS ORDERED: PROPOFOL IV EMULSION 10 MG/ML 20 ML VIAL IV ONE (12:49)
[2023-05-26] MEDS ORDERED: PHENYLEPHRINE HCL 10 MG/ML VIAL ONE (12:49)
[2023-05-26] MEDS: TRANEXAMIC ACID / 0.7% NACL 1,000 MG/100 ML BAG IV ONE ×2 (12:57→16:43)
--- NOTE | 2023-05-26 13:16 | Post Operative Brief Note ---
Immediate Post Op Note v1 Date of Surgery May 26, 2023 Pre & Post Diagnosis Operation Date: 05/26/23 10:40 <No data on this case meets the specified criteria> Pre and postop diagnosis is just displaced femoral neck fracture right with rheumatoid arthritis history and inflammatory arthropathy changes in the acetabulum the right hip postop diagnosis and preop diagnosis are the same I identified the patient and participated in the time-out.: Yes Procedure Operation Date: 05/26/23 10:40 <No data on this case meets the specified criteria> Hybrid total hip replacement cemented femur porous-coated acetabulum with dual mobility Surgeon Jac Victoria MD Family Practice Nurse Practitioner EVY/Ezequiel Estimated Blood Loss 100 Findings Consistent with Post-Op Diagnosis Displaced femoral neck fracture with marked osteopenia of the femoral head significant anterior labral tear significant central area of cartilage loss central third of the acetabulum calcified labrum superiorly and laterally Fluids See anesthesia report Drains Salgado Catheter Complications None
[2023-05-26] MEDS: ROPIVACAINE 0.5% HCL/PF 246 MG, Ketorolac (*for OR use only*) 30 MG, EPINEPHrine 30MG/3... INFIL SCH (13:20)
--- NOTE | 2023-05-26 13:21 | Operative Report ---
Post Operative Report Pre & Post Diagnosis Operation Date: 05/26/23 10:40 <No data on this case meets the specified criteria> Displaced femoral neck fracture Garden 3 right hip with significant amatory arthropathy of the right hip preop diagnosis postop diagnosis same I identified the patient and participated in the time-out.: Yes Procedure Operation Date: 05/26/23 10:40 <No data on this case meets the specified criteria> Hybrid total hip replacement with cemented femoral stem porous-coated acetabulum with dual mobility Surgeon Jac Victoria MD General Handling Supervisor EVY/Ezequiel Estimated Blood Loss 100 Findings Consistent with Post-Op Diagnosis Displaced femoral neck osteopenia femoral head central zone area of grade 4 lesion of the acetabulum large anterior labral tear posterior superior calcified labrum Specimens Bone pathology Drains None Complications None Indications Pain and secondary rheumatoid changes of the right hip status post Garden 3 fracture Description of Procedure After the patient was appropriate notified site verified consent verified antibiotics confirmed to be given the patient was placed in the left lateral decubitus position the right lower extremity prepped and draped use routine fashion. A posterior approach the hip was made. Appropriate incision length was made based on the size of the patient short the IT band and gluteus gabriel fascia was incised under direct vision care taken to protect the sciatic nerve and the Charnley retractor was placed. The short external rotators were released and preserved capsule was teed and preserved 1 can see the displaced angulated fracture of the femoral neck it was carefully teased out with the femoral head as the hip was dislocated. Femoral neck was then resected leaving about 1/2 cm above the lesser trochanter. The acetabular labrum was noted to be quite torn and resected and hanging into the joint anteriorly there was marked calcification throughout the labrum there was a significant calcified degenerated labrum superiorly and posteriorly. There is a central zone area of no articular cartilage in the acetabulum. As a result it was elected to proceed with a total replacement. The lateral remaining labral segments were excised and serial reaming carried up to a size 48 and a 48 cup impacted into position it was then secured with additional 6.5 x 25 screw with excellent purchase. The dual mobility liner was then impacted into the cup. The femur was then flexed internally rotated and the proximal femur prepared with the rongeur the brendenie cutter and the canal finder and serial broaching up to a size 3. Size 3 stem was then cemented into position after appropriate cement technique was provided after a restrictor was placed the area was irrigated and the femoral canal tampon was placed. After 12 minutes of the cement curing the pressure was decreased and cement removal was minimal. After 14 minutes the hip was then thoroughly irrigated inspected there was no pieces found in the permanent head and stem seated. Should be mentioned a trial reduction with previous +4 neck length was excellent with the trial stem's. The wound was then irrigated 1 final time with Betadine Pulsavac the permanent hip were then reduced and then closed with #2 Vicryl for the capsule #2 Vicryl for the short external rotators #2 Vicryl for the IT band gluteus gabriel fascia #2 Vicryl for deep fat 2-0 Vicryl for superficial subcutaneous tissue and stainless to clips for skin appropriate dressing applied the patient transferred to cover in satisfactory addition he tolerated the procedure well. EBL was 100 cc or less crystalloid per anesthesia bone pathology pending. DVT prophylaxis will begin tomorrow. Summary of implants size 48 acetabular shell sector cup Emmaus type XX 5 x 6.5 screw dome cover 48 x 41 later whole limb later 3 standard cemented stem to 10.5 mm centralizer for the cement 41/22 bipolar head 22+4 head. All DePuy implants I attest to the content of the Intraoperative Record and any orders documented therein. Any exceptions are noted below.
--- NOTE | 2023-05-26 13:22 | Orthopedic Progress Note ---
Date of Service May 26, 2023 Assessment & Plan Admission and Anticipated Discharge Date Admission Date: May 25, 2023 Orthopedic Progress Note Patient tolerated hybrid total hip replacement well for femoral neck fracture. Denies chest pain shortness of breath fever chills nausea vomiting or headache. This point in time neurovascular check limited by spinal. X-rays are pending. Family contacted. Continue care pathway. Potential discharge home tomorrow with services.
--- NOTE | 2023-05-26 13:33 | Operative Report ---
Post Operative Report Pre & Post Diagnosis Operation Date: 05/26/23 10:40 Pre-Op Diagnosis: Right Displaced Femoral Neck Fracture Post-Op Diagnosis: Right Displaced Femoral Neck Fracture I identified the patient and participated in the time-out.: Yes Procedure Operation Date: 05/26/23 10:40 Actual Procedures p Right Total Hip Arthroplasty, Cemented(Right) - Jac Victoria MD Surgeon Jac Victoria MD Medical Research Tech EVY/Ezequiel Estimated Blood Loss 100 Findings Consistent with Post-Op Diagnosis Same as postoperative diagnosis. Specimens The resected femoral head and neck. Description of Procedure Please see detailed operative note. I attest to the content of the Intraoperative Record and any orders documented therein. Any exceptions are noted below.
--- NOTE | 2023-05-26 13:34 | Operative Report ---
Post Operative Report Pre & Post Diagnosis Operation Date: 05/26/23 10:40 Pre-Op Diagnosis: Right Displaced Femoral Neck Fracture Post-Op Diagnosis: Right Displaced Femoral Neck Fracture I identified the patient and participated in the time-out.: Yes Procedure Operation Date: 05/26/23 10:40 Actual Procedures p Right Total Hip Arthroplasty, Cemented(Right) - Jac Victoria MD Surgeon BLAISE Victoria MD Agricultural Economics Teacher EVY/Ezequiel HOLMAN Estimated Blood Loss 100 Findings Consistent with Post-Op Diagnosis see operative report Specimens see operative report Drains none Complications none Disposition Accompanied Patient To Recovery: Yes Indications This 82 year old female was seen in consultation here in the hospital for a right subcapital femoral fracture. She had fallen at home, causing the fracture. She was admitted through the ED. She and her elected to proceed with surgical intervention after being educated about potential risks and outcomes. Preoperative imaging was obtained. Description of Procedure The patient was taken to the operating room where she was administered a spinal anesthetic and was given sedation. She was prepped and draped in the usual sterile fashion. Please see Dr. Victoria's operative report for specifics of the procedure. I was present for the entire case from initial patient positioning through final wound closure. Assistance was provided in tissue retraction, hemostasis, trial implant placement, final implant placement, and final wound closure. The patient was taken to the recovery room in satisfactory condition. I attest to the content of the Intraoperative Record and any orders documented therein. Any exceptions are noted below.
[2023-05-26] MEDS ORDERED: ALUMINUM/MAGNESIUM SUSP 30 ML UDC PO PRN (14:43)
[2023-05-26] MEDS ORDERED: diphenhydrAMINE 50 MG/ML VIAL IV PRN (14:43)
[2023-05-26] MEDS ORDERED: METOCLOPRAMIDE HCL INJ 5 MG/ML 2 ML VIAL IV PRN (14:43)
[2023-05-26] MEDS ORDERED: HYDROmorphone INJ 0.5 MG/0.5 ML SYR IV PRN (14:43)
[2023-05-26] MEDS ORDERED: VANCOMYCIN CONSULT ACTIVE PRN (14:43)
[2023-05-26] MEDS ORDERED: oxyCODONE HCL IR 5 MG TAB (IMMEDIATE RELEASE) PO PRN (14:43)
--- NOTE | 2023-05-26 14:51 | Anesthesiology Progress Note ---
Date of Service May 26, 2023 Anesthesia Post Procedure Vital Signs Vital Signs: Temp Pulse Pulse Pulse Pulse Resp BP 05/26/23 14:40 78 18 05/26/23 14:25 75 15 05/26/23 14:10 36.3 C L 74 18 05/26/23 14:00 76 18 05/26/23 13:50 76 16 05/26/23 13:40 81 19 05/26/23 13:30 36.8 C 81 16 05/26/23 10:00 36.8 C 87 20 05/26/23 07:39 36.8 C 76 16 05/26/23 05:12 36.7 C 62 16 05/25/23 23:15 36.6 C 72 18 05/25/23 16:17 93 H 05/25/23 16:10 89 16 05/25/23 15:11 36.8 C 97 H 18 135/85 BP BP Pulse Ox O2 Del Method 05/26/23 14:40 120/68 95 Room Air 05/26/23 14:25 132/72 98 Room Air 05/26/23 14:10 132/72 97 Room Air 05/26/23 14:00 130/71 99 Room Air 05/26/23 13:50 122/71 99 Room Air 05/26/23 13:40 117/71 99 Room Air 05/26/23 13:30 119/72 100 Room Air 05/26/23 10:00 156/86 H 99 Room Air 05/26/23 07:39 143/84 H 96 Room Air 05/26/23 05:12 123/79 96 Room Air 05/25/23 23:15 135/72 97 Room Air 05/25/23 16:17 05/25/23 16:10 162/92 H 96 Room Air 05/25/23 15:11 97 Pain Intensity Right Hip: Pain Intensity: 4 Transfer of Care Handoff Completed per policy Notes Mental Status: alert / awake / arousable Patient Amnestic to Procedure: Yes Nausea / Vomiting: adequately controlled Pain: adequately controlled Airway Patency, RR, SpO2: stable & adequate BP & HR: stable & adequate Hydration State: stable & adequate Neuraxial Anesthesia: was administered and sensory block is resolving Anesthetic Complications: no major complications apparent and Pt Satisfied with anesthetic care
[2023-05-26] MEDS: TRANEXAMIC ACID / 0.7% NACL 1000MG/100ML BAG IV ONE (15:13)
--- NOTE | 2023-05-26 15:22 | XRay Report ---
AP PELVIS History: Right hip fracture. Postop. FINDINGS: The patient is status post a right total hip arthroplasty. The hardware is intact. No fract ure or dislocation. Skin khurram are in place. IMPRESSION: Right total hip arthroplasty. No evidence for hardware complication ACT 112: Negative or not required by law. Electronically signed by: Elio Griffin M.D. 05/26/2023 3:21 PM
[2023-05-26] MEDS: VANCOMYCIN HCL 1,000 MG in SODIUM CHLORIDE 0.9% 500 ML IV ONE (16:48)
[2023-05-26] MEDS: ASCORBIC ACID 500 MG TAB PO SCH (16:48)
[2023-05-26] MEDS: FERROUS GLUCONATE 324 MG TAB PO SCH (16:48)
[2023-05-26] MEDS: KETOROLAC TROMETHAMINE 15 MG/ML VIAL IV SCH (16:48)
[2023-05-26] MEDS: DOCUSATE SODIUM 100 MG CAP PO SCH (20:48)
[2023-05-26] MEDS: SENNA 8.6 MG TAB PO SCH (20:48)
--- NOTE | 2023-05-27 06:32 | Orthopedic Progress Note ---
Date of Service May 27, 2023 Assessment & Plan Admission and Anticipated Discharge Date Admission Date: May 25, 2023 Orthopedic Progress Note Postop day 1 status post right hybrid total hip replacement. At this point time she is doing reasonably well. Still lacks confidence in getting out of bed. Requires an assist of 2 with the walker. Vital signs are stable she is afebrile. She remains in the 90 range with her heart rate which has been standard for her. Neurovascular check femoral sciatic nerve is normal hip is located wound dressing clean dry and intact. A.m. labs pending. Assessment overall doing reasonably well. She will require significant PT OT services. Will see how she does with that hopefully will will be on her own however is for placement may need to be entertained. This point in time she is eating and drinking reasonably well. Suggested that the IV fluid be stopped. Begin anticoagulation 24 hours postop.
[2023-05-27 06:55] LABS: Basophils # (auto) 0.02 K/uL (0.00-0.20); Basophils % (auto) 0.3 %; Eosinophils # (auto) 0.07 K/uL (0.00-0.50); Hematocrit (blood only) 31.8 % (37.0-47.0); Hemoglobin 10.5 g/dl (12.0-16.0); Immature Granulocytes # (auto) 0.03 K/uL (0.01-0.20); Immature Granulocytes % (auto) 0.4 %; Lymphocytes # (auto) 0.46 K/uL (1.20-3.40); Lymphocytes % (auto) 6.6 %; Mean Corpuscular Hemoglobin 30.5 pg (25.0-34.0); Mean Corpuscular Volume 92.4 fL (80.0-100.0); Mean Platelet Volume 9.7 fL (9.4-12.4); Monocytes # (auto) 0.57 K/uL (0.11-0.59); Monocytes % (auto) 8.2 %; Neutrophils # (auto) 5.83 K/uL (1.40-6.50); Neutrophils % (auto) 83.5 %; Platelet Count 157 K/uL (130-400); RDW Coefficient of Variation 11.8 % (11.5-14.5); RDW Standard Deviation 39.6 fL (36.4-46.3); Red Blood Count 3.44 M/uL (4.20-5.40); White Blood Count 6.98 K/ul (4.8-10.8)
[2023-05-27 07:17] LABS: Calcium 8.6 mg/dl (8.6-10.3); Est GFR (African American) 112.2 ml/min; Est GFR (Non-African American) 96.8 ml/min; Potassium 3.7 mmol/L (3.5-5.1)
[2023-05-27] MEDS: dexAMETHasone 10 MG in SYRINGE 0 ML IV SCH (08:39)
[2023-05-27] MEDS: MULTIVITAMIN TAB PO SCH (08:39)
--- NOTE | 2023-05-27 10:02 | Orthopedic Progress Note ---
Date of Service May 27, 2023 Assessment & Plan (1) Status post total hip replacement, right: Plan: The patient was educated regarding today's findings. Her dressing was changed today by me. A new pressure dressing including gauze, ABDs, and Medipore tape was applied. She is currently having difficulty with strength and balance. She would like to go home. She may be better served by attending a short stay at a long-term facility or [facility]. This was discussed with her. She would like to see how she does in PT today. We will await their input. Her Eliquis will be started today. Hip precautions were reviewed. Admission and Anticipated Discharge Date Admission Date: May 25, 2023 Subjective This 82-year-old female is seen today in her room. She is 1 day status post right total hip arthroplasty with cemented stem. She states she is having some pain, but her discomfort is currently tolerable. She is currently sitting in her bedside chair. She would like to be discharged home if possible. She denies any chest pain, shortness of breath, nausea, vomiting, numbness, tingling, or abdominal pain. She feels it is harder to move after total hip surgery compared to her total knee surgery. No other current complaints. Physical Exam Physical Exam: General: Well-developed, well-nourished, elderly female, in no acute distress. Sitting in a bedside chair. Alert and oriented. Skin: Warm and dry with fair turgor. No rashes. She has a postsurgical dressing in place on her right hip. Upon removal, there is significant postsurgical bleeding on the inner dressings. Yazan are in place. Wound edges are well-approximated. She has expected postoperative edema. Mild ecchymosis is developing. She has no active bleeding at this time. Musculoskeletal: The patient is able to rise from a chair with some minor assistance. She has difficulty with balance and requires an assistive to for stability. She was able to adjust herself and use her walker with an assist of 1. She has intact motor function of her hips and knees. Neurologic: Gross sensation is intact across both lower extremities by soft touch. Results & Data Vital Signs (Past 12 Hours) Vital Signs Temp Pulse Pulse Resp BP BP Pulse Ox 05/27/23 07:06 36.9 C 96 H 16 146/78 H 98 05/27/23 03:48 36.7 C 92 H 16 126/80 96 05/26/23 22:47 37.2 C 94 H 16 125/77 97 O2 Del Method 05/27/23 07:06 Room Air 05/27/23 03:48 Room Air 05/26/23 22:47 Room Air Laboratory Results CBC obtained this morning shows a white count of 6.98. H&H of 10.5 and 31.8. Platelets 157,000. Sodium 137, potassium 3.7, chloride 105. Anion gap of 8. BUN of 13 and creatinine 0.42. This is consistent with her baseline. Glucose this morning is 119.
[2023-05-27] MEDS: ACETAMINOPHEN 500 MG TAB PO PRN (14:43)
[2023-05-27] MEDS: APIXABAN 2.5 MG TAB PO SCH (20:46)
--- NOTE | 2023-05-27 22:28 | Hospitalist Progress Note ---
Date of Service May 27, 2023 Assessment & Plan (1) Closed right hip fracture: Plan: mechanical fall Right hip fracture Right transcervical right femoral neck fracture with impaction and minimal displacement. History of right TKA - Baseline EKG nsr, qtc 441. Patient lost her balance while pivoting, no syncopal/presyncopal symptoms, no loss of consciousness, no head injury She has no history of cardiac, renal, or lung disease Does not take any blood thinners or antiplatelets Orthopedic surgery consulted. Right total hip arthroplasty Dr. Victoria 05/26/2023 I was notified by the physicians desk assistant that this was a successful case without complication. Patient returned to the floor good condition Multimodal pain control, Tylenol first-line, low-dose morphine second-line. No additional analgesics needed at time of admitting bedside Plan to discharge on 05/28 (2) Rheumatoid arthritis: Plan: Rheumatoid arthritis -Well-controlled, Tylenol as needed (3) Hodgkin's disease: Plan: Past Hx Hodgkins, no evidence of recurrent malignancy. WBC/Hb/platelet counts normal (4) Vitamin D insufficiency: Plan: With fracture as above. Vitamin D level ordered on admission found replete Plan SCDs Full code Physical therapy evaluation for consideration of rehabilitation will be required Admission and Anticipated Discharge Date Admission Date: May 25, 2023 Subjective Patient reports no new symptoms. Review of Systems Review of Systems: All systems reviewed & are unremarkable except as noted in HPI & below Physical Exam Physical Exam: Awake alert appropriate. She has hand changes of rheumatoid arthritis with ulnar deviation Cardiac exam was regular without murmurs Lungs are clear anteriorly Right distal extremity had pulses and capillary refill intact Results & Data Results & Data Vital Signs (Past 12 Hours) Vital Signs Temp Pulse Pulse Resp BP BP Pulse Ox 05/27/23 19:45 36.6 C 96 H 18 146/76 H 97 05/27/23 17:10 89 05/27/23 16:16 36.8 C 105 H 16 119/77 98 05/27/23 11:48 36.6 C 96 H 16 130/84 98 O2 Del Method 05/27/23 19:45 Room Air 05/27/23 17:10 05/27/23 16:16 Room Air 05/27/23 11:48 Room Air PG Care Time/CCT Total # of Minutes Spent Total Time Spent with Patient: Total time spent is greater than 50% in coordination of care (as documented) at patient's floor/unit and/or counseling patient: Coding Level of Care Code 63773 SUB INP/OBS CARE Diagnoses Closed right hip fracture S72.001A Rheumatoid arthritis M06.9 Hodgkin's disease C81.90 Vitamin D insufficiency E55.9
--- NOTE | 2023-05-28 06:37 | Orthopedic Progress Note ---
Date of Service May 28, 2023 Assessment & Plan Admission and Anticipated Discharge Date Admission Date: May 25, 2023 Orthopedic Progress Note Postop day #2 status post hybrid total hip replacement for femoral neck fracture and patient with rheumatoid arthritis. She states she slept well. Chart documents that she slept most of the night. Vital signs are stable. Heart rate in the 90s per baseline. She denies chest pain shortness of breath fever chills nausea vomiting or headache. Examination of her extremities reveals a leg lengths are equal neurovascular check femoral sciatic nerve is intact. There is deformity from chronic changes related to rheumatoid disease in both upper and lower extremities at the toes and hands. Axial compression of the hip through the leg produces no pain. She has some stiffness with movement based on muscle. Wound dressing clean dry and intact. Calves are nontender. Assessment overall doing well. Plan [facility]. Needs to be careful with transfers and flexing hyperflexing her hip. She will follow-up with us in roughly 12 to 14 days. Started her Eliquis last night. Keep pressure dressing on hip keep wound clean and dry until khurram removed.
[2023-05-28 06:58] LABS: Basophils # (auto) 0.01 K/uL (0.00-0.20); Basophils % (auto) 0.1 %; Eosinophils # (auto) 0.02 K/uL (0.00-0.50); Eosinophils % (auto) 0.3 %; Hematocrit (blood only) 27.5 % (37.0-47.0); Hemoglobin 9.3 g/dl (12.0-16.0); Immature Granulocytes # (auto) 0.02 K/uL (0.01-0.20); Immature Granulocytes % (auto) 0.3 %; Lymphocytes # (auto) 0.63 K/uL (1.20-3.40); Lymphocytes % (auto) 8.1 %; Mean Corpuscular Hemoglobin 30.8 pg (25.0-34.0); Mean Corpuscular Hgb Conc 33.8 g/dL (32.0-36.0); Mean Corpuscular Volume 91.1 fL (80.0-100.0); Mean Platelet Volume 9.7 fL (9.4-12.4); Monocytes # (auto) 0.73 K/uL (0.11-0.59); Monocytes % (auto) 9.4 %; Neutrophils # (auto) 6.37 K/uL (1.40-6.50); Neutrophils % (auto) 81.8 %; Platelet Count 164 K/uL (130-400); RDW Coefficient of Variation 11.9 % (11.5-14.5); RDW Standard Deviation 39.6 fL (36.4-46.3); Red Blood Count 3.02 M/uL (4.20-5.40); White Blood Count 7.78 K/ul (4.8-10.8)
[2023-05-28 07:30] LABS: BUN Creatinine Ratio 35.8 (10-20); Calcium 8.9 mg/dl (8.6-10.3); Creatinine Clr Calc Pharmacy 79.3 ml/min; Est GFR (African American) 103.9 ml/min; Est GFR (Non-African American) 89.7 ml/min; Potassium 3.6 mmol/L (3.5-5.1)
--- NOTE | 2023-05-28 12:02 | Discharge Summary ---
Date of Service May 28, 2023 Admission HPI Per Admitting Provider Skyla is a 82-year-old female [facility] patient who presents Mechanical fall on Wednesday. Scheduled with Dr. Baptiste. Skyla is seen at the bedside. She reports that she was pivoting when she lost her balance and fell striking her hip. She did not have any lightheadedness, dizziness, syncope, or presyncope. She did not strike her head. She did not have any chest pain/chest pressure/palpitations. Reports the fall was purely from losing her balance, had not felt dizzy prior. She reports that she had pain in her right hip but was able to bear some weight and was seen for follow- up, hip was found to be broken as referred to the ER. At time of bedside assessment she feels the pain is not present and tolerable as long as she does not move. She is a little chilly, subsequently improved with additional blankets brought by staff. No other questions or concerns at time of bedside assessment. She reports that she has a history of rheumatoid arthritis, takes Tylenol as needed. Warfarin was on medication list, this was temporary prophylactic dosing after her right knee replacement. She does not currently take any blood thinners or antiplatelet agents. She denies a history of kidney, renal, and heart disease. No history of diabetes or insulin use. Medical History: Reviewed Medications: Reviewed Surgical History: Reviewed Family history: Reviewed Allergies: Reviewed Social History: Denies tobacco/alcohol/recreational substance use Code Status: Full Code Principal Diagnosis closed right hip fracture Discharge Exam Awake alert appropriate. Sitting in chair having lunch. in room. Discharge Data Allergies Allergy/AdvReac Type Severity Reaction Status Date / Time No Known Allergies Allergy Unknown Verified 05/25/23 15:38 Consultations 05/25/23 16:19 ED Decision to Admit Stat 05/25/23 19:08 Consult Orthopedic Surgery Routine Procedures Performed Operation Date: 05/26/23 10:40 Actual Procedures p Right Total Hip Arthroplasty, Cemented(Right) - Jac Victoria MD Hospital Course (1) Closed right hip fracture: mechanical fall Right hip fracture Right transcervical right femoral neck fracture with impaction and minimal displacement. History of right TKA - Baseline EKG nsr, qtc 441. Patient lost her balance while pivoting, no syncopal/presyncopal symptoms, no loss of consciousness, no head injury She has no history of cardiac, renal, or lung disease Does not take any blood thinners or antiplatelets Orthopedic surgery consulted. Right total hip arthroplasty Dr. Victoria 05/26/2023 I was notified by the physicians assistant teacher that this was a successful case without complication. Patient returned to the floor good condition Multimodal pain control, Tylenol first-line, low-dose morphine second-line. No additional analgesics needed at time of admitting bedside Plan to discharge on 05/28 DVT prophylaxis will be eliquis. (2) Rheumatoid arthritis: Rheumatoid arthritis -Well-controlled, Tylenol as needed (3) Hodgkin's disease: Past Hx Hodgkins, no evidence of recurrent malignancy. WBC/Hb/platelet counts normal (4) Vitamin D insufficiency: With fracture as above. Vitamin D level ordered on admission found replete Total Time Total Time Spent Total Time Spent (In Minutes): 15 Discharge Plan Discharge Items Patient Disposition: Transfer Inpatient Rehab Fac Reason For Visit: R HIP FRACTURE Discharge Diagnosis: Right hip s/p total hip replacement Condition on Discharge: Good Activity: Per Instructions section Lifting: Wait until after follow-up appointment Bathing: Keep incision dry Sexual Activity: Wait until after follow-up appointment Exercise/Sports: Wait until after follow-up appointment Driving/Machine Use: No driving until cleared by Dr. Victoria Weightbearing: Full weightbearing Non-emergency contact: Surgeon Call non-emergency contact if: you have any medication questions, your pain is not controlled, your temperature is above 101, your wound has increased redness, your wound has increased drainage and your wound pain has increased Follow-up/Referrals: Sukhdev Pearson MD [Primary Care Provider] - Meche Trinh PA-C [Physician [employer] Protection Maintainer] - 06/10/23 8:45 am Diet: Heart Healthy Addtl Attending Provider Instructions: New Medicine: * You will likely be taking one or more of these medicines: 1. Percocet - Take, as directed, when you need it, every four to six hours to control your pain. 2. Iron Sulfate - Take 1x each day for the month after surgery to help you replace the blood lost during surgery. 3. Eliquis - Thins your blood to lessen the chance of forming a blood clot. * The most common side effects of pain medicine and iron are nausea and constipation. If nausea or constipation is too much of a problem or if you have any questions about your new medicines or doses, call [facility] at . We will try to help you manage these issues. "VERY IMPORTANT TO READ AND REVIEW" Blood Clots and Blood Thinning Medicine: * You are given Eliquis during the immediate post-operative period to lessen the risk of blood clots forming in your legs and/or lungs. It is usually given for 4 weeks after surgery. Pain: * The immediate post-operative period after hip replacement surgery is often quite painful. * You are given a prescription for pain medicine. You should take it, as directed, when you need it, especially before physical therapy and before going to bed. Pain that interferes with sleep is very common and can last several months. * You will likely need pain medicine for the first two to four weeks. It will not stop all of the pain. The pain will lessen and as you feel better, you may change to milder pain medicine such as Tylenol. * The most common side effects of pain medicine are nausea and constipation, so don't take more than you need. Physical Therapy: * Follow the "Hip Precautions Instructions." * In some cases, the psychotherapist social worker at the hospital will arrange to have a therapist come to your house for the first couple of weeks to help you learn these skills. * You need to practice on your own or with the help of a family member as needed. * When you learn these skills, most of the therapy can be done on your own. Home Exercise: * You were shown a series of exercises in the hospital. Do these exercises three to four times each day including the exercises you were shown in physical therapy. Walking: * Get up and walk several times each day. For the first four weeks, try not to stand or walk for more than one hour at a time. If you do stand or walk for more than one hour, you will not hurt anything, but your leg will likely swell. * As you feel comfortable, you may change from the walker or crutches to a cane and then to independent walking. SELF CARE INSTRUCTIONS AFTER TOTAL HIP REPLACEMENT Until the incision and soft tissues around your hip have healed, there is a possibility that the hip prosthesis could dislocate. A. Observe the following precautions to prevent dislocation: 1. Don't bend your hip greater than 90 degrees. 2. Avoid crossing your legs or ankles while standing or lying. 3. Sit with your feet placed 6 inches apart. 4. When sitting, keep your knees below your hips. Sit on a firm surface, avoid deep, soft chairs and couches. Use an elevated toilet seat in the bathroom. 5. Don't bend over at the waist. Use a long handled shoehorn and a sock aid to help you put on your shoes and socks. A silk weaver can help you scrap picker objects that are too high or too low to reach. 6. Keep car riding to a minimum for at least one month after surgery. B. Your balance may be shaky for a while. Use crutches or a walker until directed by your doctor. C. Use hand rails when walking on stairs. D. Wear low heeled shoes with non-slip soles. E. Be sure that your floors are free of things that could trip you - throw rugs, electrical cords, small objects. Avoid wet and waxed floors, especially with crutches and canes. F. Try to walk several times a day with rest periods between. G. Continue with all the exercises taught to you in the hospital. Again, make walking a part of your daily routine. VERY IMPORTANT TO READ AND REVIEW A. Take Eliquis (blood thinning medication) as directed by your doctor. B. There are a few signs you need to watch for after you are home. If you notice any of the followin. Increased severe hip pain. Some pain is expected especially when you exercise. 2. Increased swelling in your leg or knee; pain or swelling of the calf muscle in either lower leg. 3. Any fluid drainage from the incision. 4. Shortness of breath or chest pain. TEDs/Elastic Stockings: * The white elastic stockings help limit swelling and prevent blood clots from forming in your legs. The more you wear them, the more they work. * Wear them for six weeks. Prevention of Infection: * Take antibiotics one hour before any dental cleaning, dental work, urological procedure, gastrointestinal procedure or any invasive surgery in order to prevent your new joint from getting infected. * You may get the antibiotics from the doctor performing the procedure or we will call in a prescription to the pharmacy of your choice. Call the office for a prescription at least 2 days prior to your appointment. Things to Watch For: * Drainage from the incision site that occurs more than one week after your surgery. * Severely increased leg pain or swelling. * Increased redness at the incision site. * Fever above 101 degrees Fahrenheit. * Unusual chest pain or shortness of breath. * Unusual pain or burning with urination. Sleep with the wedge pillow for the next 2 weeks Use your walker for ambulation Leave the surgical dressing in place. It can be changed on Wednesday if needed for soiling Pending Studies at Discharge: Yes Studies:: bone pathology Stand-Alone Forms: [facility] Skilled Items Patient informed of condition?: Yes DNR: No Discharge Level of Care: Acute rehab Communicable Disease: No Discharge Prognosis: Improving Lines: None Urinary Catheter: No Medications and DC Order Prescriptions: New Eliquis 2.5 mg tablet 2.5 mg PO BID Qty: 60 0RF oxycodone-acetaminophen [Percocet] 5-325 mg tablet 1 tab PO Q6H PRN (Reason: pain) Qty: 12 0RF Rx Instructions: initial script Continued acetaminophen [Tylenol Extra Strength] 500 mg Tablet 1,000 mg PO Q6H PRN (Reason: Pain) Relief Factor 4 tab PO AMPM Discharge Orders: Discharge Order (Routine); Ordered 05/28/23 Ordered By: Jac Victoria Admission Data Admit Date/Time: 05/25/23 17:01 Attending Provider: Jaime Campbell Admit Provider: Edgar Huang Primary Care Provider: Sukhdev Pearson Other Providers: Edgar Huang; Jac Victoria; [facility] Other Interventions: Discharge Summary Assessment (RN) Last Done: 05/28/23 10:38 Coding Level of Care Code 80781 IN/OBS DISCH 30 MIN/LESS Diagnoses Closed right hip fracture S72.001A Rheumatoid arthritis M06.9 Hodgkin's disease C81.90 Vitamin D insufficiency E55.9
== END 2023-05-28 13:58 | DRG 522 ==
LOC: ED 14:35 → SUATTDRO 17:01 → EDINP 17:01 → 3E 19:09